=== PATIENT | female | born 1950 | race Caucasian/White ===

== ENCOUNTER 2016-05-14 06:42 | Day surgery (SDC) | payer MEDICARE, OTHER ==
[2016-05-14] VITALS (8 sets, daily range): BP systolic 95–149; BP diastolic 72–81; PULSE 60–95; RESP 16–19; TEMP 97.7–98; O2SAT 92–98
[~2016-05-14] VITALS: Ht 157.5 cm; Wt 115.9 kg
[~2016-05-14 06:42] MED LIST: ALBU6.7H INH; ALBUAER3 INH; BUPR150T5 PO; FEXO180T PO; FLUT1SPR9 EACH NARE; HYDR-3133 PO; HYDR-3580 PO; ISOS30TA3 PO; LAMO100T68 PO; METO-309 PO; MORPHINE IMPLANPUMP; OMEP20TA PO; PLAV75TA29 PO; POTA10CA PO; TRIA37.53 PO; XANA0.5T2 PO
[2016-05-14] MEDS ORDERED: PROC10TA PO (07:12)
[2016-05-14] MEDS ORDERED: MAXZTAB PO (07:12)
[2016-05-14] MEDS ORDERED: ZOFR4TAB3 SL (07:12)
[2016-05-14] MEDS ORDERED: LIDOCAINE 1%/EPINEPHrine 1:100,000 SOLN 20 ML VIAL ONE (08:20)
[2016-05-14] MEDS ORDERED: fentaNYL CITRATE 250 MCG/5 ML AMP ONE (08:54)
[2016-05-14] MEDS ORDERED: MIDAZOLAM HCL 5 MG/5 ML VIAL ONE (08:54)
[2016-05-14] MEDS ORDERED: THROMBIN (TOPICAL) 5,000 UNIT VIAL ONE (10:07)
[2016-05-14 11:15] LABS: AUTOMATED NEUTROPHIL # 3.8 TH/MM3 (1.8-7.7); BASOPHIL % 0.3 % (0.0-2.0); EOSINOPHIL # 0.2 TH/MM3 (0-0.4); EOSINOPHIL % 2.6 % (0.0-4.0); HEMATOCRIT 41.2 % (35.0-46.0); HEMO FLAGS DIFF FINAL; LYMPH % 31.4 % (9.0-44.0); MEAN CELL VOLUME 84.9 FL (80.0-100.0); MONO % 6.8 % (0.0-8.0); NEUT % 58.9 % (16.0-70.0); PLATELET COUNT 267 TH/MM3 (150-450); RED BLOOD COUNT 4.85 MIL/MM3 (4.00-5.30); RED CELL DISTRIBUTION WIDTH 14.5 % (11.6-17.2); WHITE BLOOD COUNT 6.4 TH/MM3 (4.0-11.0)
[2016-05-14] MEDS ORDERED: ACETAMINOPHEN/HYDROcodone 325 MG/5 MG TAB PO ONE (11:30)
[2016-05-14] MEDS ORDERED: ACETAMINOPHEN/HYDROcodone 325 MG/5 MG TAB PO PRN (12:30)
--- NOTE | 2016-05-14 13:15 | RADRPT ---
EXAM DATE/TIME: 05/14/2016 09:41 [place] COMPARISON: CT NEEDLE BIOPSY RENAL, RIGHT, May 27, 2013, 15:06. INDICATIONS : Recurrent right renal mass post cryoablation SEDATION TIME: 45 minutes BIOPSY SITE: Right kidney MEDICATION(S): 1.) 3 mg midazolam (Versed) IV 2.) 150 mcg fentanyl (Sublimaze) IV DEVICE(S): 1.) 16 gauge Valladares blunt needle 2.) 18 Fr BioPince MEDICAL HISTORY : Cardiovascular disease. Renal cell carcinoma. SURGICAL HISTORY : Mastectomy, bilateral. Hysterectomy. ENCOUNTER: Initial ACUITY: 1 day PAIN SCORE: 0/10 LOCATION: Right flank A total of three core specimen(s) were obtained and sent to the laboratory for pathologic evaluation. PROCEDURE: 1. CT guided renal biopsy. 2. Conscious sedation with continuous EKG and oximetry monitoring. 3. EKG and oximetry remained stable throughout the procedure. Prior to the procedure informed consent was obtained. Any appropriate prior imaging studies were rev iewed. Using automated exposure control and adjustment of the mA and/or kV according to patient size, radiat ion dose was kept as low as reasonably achievable to obtain optimal diagnostic quality images. The site was prepped in a sterile fashion. Full sterile technique was used, including cap, mask, yousuf rile gloves and gown and a large sterile sheet. Hand hygiene and 2% chlorhexidine and/or betadine/al cohol prep was utilized per protocol for cutaneous antisepsis. The skin and subcutaneous tissues wer e infiltrated with local anesthetic solution. With CT guidance the previously identified target was localized. Biopsy was performed using the presc ribed needle as above. Adequate hemostasis was obtained with compression at the puncture site. Follow-up CT scan reveals a small amount of hematoma. A combination of thrombin and fibrin was placed in the tract. The patient tolerated the procedure well and there were no complications. The patient was returned to the Radiology Outpatient Unit in stable condition. CONCLUSION: Uncomplicated CT guided biopsy. Mahesh Watson MD on May 14, 2016 at 13:13 Board Certified Radiologist. This report was verified electronically.
[2016-05-14 13:22] LABS: AUTOMATED NEUTROPHIL # 3.4 TH/MM3 (1.8-7.7); BASOPHIL # 0.1 TH/MM3 (0-0.2); BASOPHIL % 0.8 % (0.0-2.0); EOSINOPHIL # 0.2 TH/MM3 (0-0.4); EOSINOPHIL % 2.8 % (0.0-4.0); HEMATOCRIT 41.5 % (35.0-46.0); HEMO FLAGS DIFF FINAL; LYMPH % 35.8 % (9.0-44.0); LYMPHOCYTE # 2.2 TH/MM3 (1.0-4.8); MEAN CELL VOLUME 86.1 FL (80.0-100.0); MEAN CORPUSCULAR HEMOGLOBIN 27.7 PG (27.0-34.0); MEAN CORPUSCULAR HGB CONC 32.2 % (32.0-36.0); MONO % 5.6 % (0.0-8.0); PLATELET COUNT 206 TH/MM3 (150-450); RED BLOOD COUNT 4.81 MIL/MM3 (4.00-5.30); RED CELL DISTRIBUTION WIDTH 14.4 % (11.6-17.2); WHITE BLOOD COUNT 6.1 TH/MM3 (4.0-11.0)
[2016-07-11] MEDS ORDERED: ZANTTAB9 PO (11:24)
[2016-08-09] MEDS ORDERED: HYDR-3534 PO (10:35)
== END 2016-05-14 15:38 | disposition home or self-care (01) ==
LOC: HRAD 06:42 → HRIP 06:43 → HRAD 15:38
PROVIDERS: ATTEND Urology
DX: C64.9 Malignant neoplasm of unspecified kidney, except renal pelvis (principal); I25.10 Atherosclerotic heart disease of native coronary artery without angina pectoris; Z90.10 Acquired absence of unspecified breast and nipple; Z90.710 Acquired absence of both cervix and uterus
CPT/HCPCS: 50200; 77012; 85025; 88305; 88341; 88342; J2250; J3010

== ENCOUNTER → 2016-07-10 | Outpatient (CLI) | payer MEDICARE, OTHER ==
[~2016-07-10] MED LIST changes: -ALBUAER3 INH; +AMLO5TAB2 PO; +GABA100C4 PO; -HYDR-3133 PO; +HYDR-3534 PO; -HYDR-3580 PO; +MAXZTAB PO; +PROC10TA PO; -TRIA37.53 PO; +VITA1000 PO; +ZANT150T2 PO; +ZANTTAB9 PO; +ZOFR4TAB3 SL
[2016-07-10 10:48] LABS: AUTOMATED NEUTROPHIL # 4.9 TH/MM3 (1.8-7.7); BASOPHIL # 0.1 TH/MM3 (0-0.2); BASOPHIL % 1.2 % (0.0-2.0); EOSINOPHIL # 0.1 TH/MM3 (0-0.4); EOSINOPHIL % 0.8 % (0.0-4.0); HEMATOCRIT 41.6 % (35.0-46.0); HEMO FLAGS DIFF FINAL; LYMPH % 24.9 % (9.0-44.0); LYMPHOCYTE # 1.8 TH/MM3 (1.0-4.8); MEAN CELL VOLUME 85.7 FL (80.0-100.0); MEAN CORPUSCULAR HEMOGLOBIN 27.7 PG (27.0-34.0); MEAN CORPUSCULAR HGB CONC 32.4 % (32.0-36.0); NEUT % 67.1 % (16.0-70.0); PLATELET COUNT 275 TH/MM3 (150-450); RED BLOOD COUNT 4.86 MIL/MM3 (4.00-5.30); RED CELL DISTRIBUTION WIDTH 14.6 % (11.6-17.2); WHITE BLOOD COUNT 7.4 TH/MM3 (4.0-11.0)
[2016-07-10 10:57] LABS: APTT (PATIENT) 29.5 SEC (24.3-30.1); PROTHROMBIN TIME - PATIENT 11.3 SEC (9.8-11.6)
[2016-07-10 11:20] LABS: ALKALINE PHOSPHATASE 108 U/L (45-117); ALT (GPT) 25 U/L (10-53); ANION GAP 9 MEQ/L (5-15); AST (GOT) 68 U/L (15-37); BICARBONATE 29.5 MEQ/L (21.0-32.0); BLOOD UREA NITROGEN 13 MG/DL (7-18); CHLORIDE 99 MEQ/L (98-107); GLOMERULAR FILTRATION RATE 56 ML/MIN (>89); GLUCOSE,FASTING 123 MG/DL (74-99); POTASSIUM 4.2 MEQ/L (3.5-5.1); SODIUM (NA) 137 MEQ/L (136-145); TOTAL BILIRUBIN ADULT 0.4 MG/DL (0.2-1.0)
== END ==
LOC: CPRE 10:23
PROVIDERS: ATTEND Urology
DX: N28.89 Other specified disorders of kidney and ureter (principal)
CPT/HCPCS: 36415; 80053; 85025; 85610; 85730

== ENCOUNTER 2016-07-17 05:54 | Inpatient (IN) | payer MEDICARE, OTHER ==
[~2016-07-17] VITALS: Ht 157.5 cm; Wt 121.3 kg
[~2016-07-17 05:54] MED LIST changes: -AMLO5TAB2 PO; -GABA100C4 PO; -HYDR-3534 PO; -OMEP20TA PO; -VITA1000 PO; -ZANT150T2 PO
[2016-07-17] MEDS ORDERED: POVIDONE IODINE 5% (ANTISEPSIS KIT) 4 APPLICATIONS EACH NARE PRN (06:15)
[2016-07-17] MEDS ORDERED: METOPROLOL TARTRATE 25 MG TAB PO PRN (06:15)
[2016-07-17] MEDS ORDERED: INSULIN HUMAN REGULAR 1,000 UNITS/10 ML VIAL SQ PRN (06:15)
[2016-07-17] MEDS ORDERED: LACTATED RINGER'S 1000 ML IV PRN (06:15)
[2016-07-17] MEDS ORDERED: SODIUM CHLORID 0.9% 500 ML IV PRN (06:15)
[2016-07-17] MEDS ORDERED: CHLORHEXIDINE GLUCONATE 2 % 1 PACK (2 CLOTHS) TOPICAL PRN (06:15)
[2016-07-17] MEDS ORDERED: LEVOFLOXACIN 500 MG PREMIX INJ 100 ML IV PRN (06:30)
[2016-07-17] MEDS ORDERED: ZANT150T2 PO (06:38)
[2016-07-17] MEDS ORDERED: VITA1000 PO (06:40)
[2016-07-17 06:41] VITALS: BP 139/74; PULSE 60; RESP 18; TEMP 98.2; O2SAT 94
[2016-07-17] MEDS ORDERED: GABA100C4 PO (06:41)
[2016-07-17] MEDS ORDERED: AMLO5TAB2 PO (06:41)
[2016-07-17] MEDS ORDERED: fentaNYL CITRATE 250 MCG/5 ML AMP ONE ×2 (06:50→16:10)
[2016-07-17] MEDS ORDERED: FAMOTIDINE 20 MG/2 ML VIAL ONE (06:50)
[2016-07-17] MEDS ORDERED: MIDAZOLAM HCL 2 MG/2 ML VIAL ONE (06:50)
[2016-07-17] MEDS ORDERED: ONDANSETRON HCL 4 MG/2 ML VIAL ONE (08:01)
[2016-07-17 11:46] LABS: BLOOD GAS HCO3 23 mmol/L (22-26); BLOOD GAS METHEMOGLOBIN 1.5 % (0-2); BLOOD GAS O2 HGB SATURATION 95 % (90-100); BLOOD GAS OXYGEN CONTENT 15.7 Vol % (12.0-20.0); BLOOD GAS PCO2 37 mmHg (38-42); BLOOD GAS PO2 122 mmHg (61-120); BLOOD GAS TOTAL HGB 11.6 G/DL (12.0-16.0); CRITICAL VALUE NO; OXYGEN DEVICE VENTILATOR; TEMP CORR TO 98.6
[2016-07-17 11:47] LABS: DRAW SITE ART LINE; FIO2 100 %; STAT YES
[2016-07-17] MEDS ORDERED: NORMOSOL R IV ONE (12:00)
[2016-07-17] MEDS ORDERED: LACTATED RINGER'S 1000 ML INJ 3,000 ML IV ONE (12:00)
[2016-07-17] MEDS ORDERED: VECURONIUM BROMIDE 20 MG VIAL IV ONE (12:00)
[2016-07-17] MEDS ORDERED: PHENYLEPH/NS 1000 MCG/10 ML SYR IV ONE (12:00)
[2016-07-17] MEDS ORDERED: ePHEDrine/NS 25 MG/5 ML SYR IV ONE (12:00)
[2016-07-17] MEDS ORDERED: PROPOFOL 200 MG/20 ML AMP IV ONE (12:00)
[2016-07-17 13:30] LABS: BLOOD GAS BASE EXCESS -1.2 mmol/L (-2-2); BLOOD GAS CARBOXYHEMOGLOBIN 0.9 % (0-4); BLOOD GAS HCO3 23 mmol/L (22-26); BLOOD GAS METHEMOGLOBIN 1.2 % (0-2); BLOOD GAS O2 HGB SATURATION 96 % (90-100); BLOOD GAS OXYGEN CONTENT 15.7 Vol % (12.0-20.0); BLOOD GAS PCO2 39 mmHg (38-42); BLOOD GAS PO2 195 mmHg (61-120); BLOOD GAS TOTAL HGB 11.3 G/DL (12.0-16.0); CRITICAL VALUE NO; DRAW SITE ART LINE; FIO2 100 %; OXYGEN DEVICE VENTILATOR; STAT YES; TEMP CORR TO 98.6
[2016-07-17] MEDS ORDERED: ACETAMINOPHEN 1000 MG/100 ML VIAL IV ONE (16:10)
[2016-07-17] MEDS ORDERED: SUGAMMADEX SODIUM 200 MG/2 ML VIAL IV PUSH ONE ×2 (16:10)
[2016-07-17 16:37] LABS: BLOOD GAS BASE EXCESS -3.2 mmol/L (-2-2); BLOOD GAS CARBOXYHEMOGLOBIN 1.5 % (0-4); BLOOD GAS HCO3 22 mmol/L (22-26); BLOOD GAS METHEMOGLOBIN 2.1 % (0-2); BLOOD GAS O2 HGB SATURATION 92 % (90-100); BLOOD GAS OXYGEN CONTENT 15.1 Vol % (12.0-20.0); BLOOD GAS PCO2 48 mmHg (38-42); BLOOD GAS PO2 83 mmHg (61-120); BLOOD GAS TOTAL HGB 11.6 G/DL (12.0-16.0); TEMP CORR TO 98.6
[2016-07-17 16:38] LABS: OXYGEN DEVICE VENTILATOR
[2016-07-17 16:39] LABS: CRITICAL VALUE YES; DRAW SITE ART LINE; FIO2 100 %; STAT YES
--- NOTE | 2016-07-17 16:57 | PD.OP ---
Operative Report Date of Surgery: July 17, 2016 Preoperative Diagnosis: (1) Renal cell carcinoma of right kidney Postoperative Diagnosis: (1) Renal cell carcinoma of right kidney Procedure: Robot-assisted laparoscopic right radical nephrectomy with lysis of adhesions Anesthesia: General Surgeon: Shorty Mccormack Locator(s): Kirit Rosa Operation and Findings: Indication for procedure: Case of a pleasant 66-year-old female with history right renal cell carcinoma treated with cryoablation in May 2013. Patient was recently diagnosed with recurrent disease at the same site via needle biopsy and presents now for a robot-assisted laparoscopic right partial versus radical nephrectomy. Operative procedure in detail: Patient was brought to the operating room suite and placed supine on the OR table. She was then placed and general endotracheal anesthesia. She was then repositioned in the left lateral recumbent position and secured in place with a beanbag after the table was flexed to displace the pelvis from the thorax. All pressure points were then adequately padded. After appropriate timeout was undertaken, I proceeded with creating a pneumoperitoneum utilizing the veruss needle. The camera port was then placed with the visual obturator and the peritoneal cavity was easily entered. Careful inspection with the laparoscopic camera demonstrated multiple abdominal wall adhesions as well as the transverse colon being adhered to the anterior abdominal wall. The endovascular scissors were utilized and the adhesions were taken down. It took approximately 2 hours to free up the adhesions to allow proper port placement. Next the 3 robotic arm ports as well as the 12 mm surgical first assistant port were placed under direct vision. The robot was next Dr. varinder fragoso. I repositioned myself over at the [facility] [place] console and Dr. Kirit Rosa remained at the bedside to cutter first. The right colon was mobilized medially to expose the right retroperitoneum. The kidney was identified and mobilized. Once the kidney was cleared of the overlying renal fatty tissue became apparent that the kidney was quite small and that the tumor mass encompassed most of the kidney, a decision was thus made to proceed with a full right radical nephrectomy. The hilar vessels were identified and skeletonized and subsequently divided ligated utilizing the endovascular stapling device. Next the kidney was further mobilized of the remaining attachments and placed in a Endo Catch specimen bag. The pneumoperitoneum was dropped down to 5 mmHg and no significant bleeding was noted here at a 10 mm PAMELA drain was placed through one of the robotic arm ports under direct vision and the ports were then removed and the robot undocked. I re-scrubbed and returned back to the bedside to complete the procedure. The camera port was extended for a distance of approximate 4 cm and the specimen delivered. This extended incision site was then closed utilizing #1 PDS to reapproximate the fascia and the skin edges were reapproximated with the skin stapling device. The robotic arm ports were closed by reapproximating the skin edges with the skin stapling device. The first support was then closed in 2 layers with the fascial layer reapproximated with 2-0 Vicryl suture and the overlying skin with the skin stapling device. Sterile dressings were placed over all wound sites. The PAMELA drain was secured with 2. 0 nylon and connected to bulb suction. The patient tolerated the procedures without patient's posterior transferred to the PACU in satisfactory condition. Total estimated blood loss was approximately 1 L and the patient received 2 units packed cells in the operating room. Shorty Mccormack MD July 17, 2016 16:57
[2016-07-17] MEDS ORDERED: HYDROmorphone HCL PCA 6 MG/30 ML IV SCH (17:00)
[2016-07-17] MEDS ORDERED: NALOXONE HCL 0.4 MG/ML AMP IV PRN ×2 (17:00)
[2016-07-17] MEDS ORDERED: SODIUM CHLORIDE 0.9% FLUSH 10 ML FLUSH IV FLUSH PRN (17:00)
[2016-07-17] MEDS ORDERED: Post-op Orders (for Pharmacy) MISC XX ONE (17:00)
[2016-07-17] MEDS: PCA - TOTAL MG DILAUDID DELIVERED PER SHIFT OTHER SCH ×2 (17:00→22:00)
[2016-07-17] MEDS ORDERED: FUROSEMIDE 20 MG/2 ML VIAL ONE (17:13)
[2016-07-17] MEDS ORDERED: *morphine SULFATE 8 MG/ML PERIprocedure ONLY ONE ×2 (17:21→17:35)
[2016-07-17] MEDS ORDERED: *HYDROmorphone PF 1 MG VIAL PERIprocedural Use ONLY ONE (17:40)
[2016-07-17] MEDS ORDERED: ALBUTEROL SULFATE 90 MCG/ACT HFA 18 GM INHALER INH PRN (17:45)
[2016-07-17] MEDS ORDERED: PILL SPLITTER OTHER PRN (17:45)
[2016-07-17] MEDS: LACTATED RINGER'S 1000 ML INJ 1,000 ML IV SCH (17:55)
[2016-07-17] MEDS ORDERED: *RESP: ALBUTEROL 2.5 MG/3 ML NEB (PRN) PERIprocedural Use ONLY NEB ONE (17:56)
[2016-07-17] MEDS ORDERED: DO NOT ADM ANY ANTICOAGULANT DRUGS PRN (18:15)
[2016-07-17 20:00] VITALS: BP 117/54; PULSE 76; RESP 22; TEMP 97.1; O2SAT 94
[2016-07-17] MEDS: GABAPENTIN 300 MG CAP PO SCH (21:00)
[2016-07-17] MEDS ORDERED: LAMOTRIGINE 100 MG PO SCH (21:00)
[2016-07-17] MEDS: SODIUM CHLORIDE 0.9% FLUSH 10 ML FLUSH IV FLUSH SCH (21:00)
[2016-07-17] MEDS: METOPROLOL TARTRATE 50 MG TAB PO SCH (21:00)
[2016-07-17] MEDS: lamoTRIgine 100 MG TAB PO SCH (21:00)
[2016-07-17] MEDS: buPROPion HCL 150 MG SUSTAINED RELEASE TAB PO SCH (21:00)
[2016-07-17] MEDS: ALPRAZolam 0.25 MG TAB PO SCH (23:59)
[2016-07-18] VITALS (7 sets, daily range): BP systolic 116–145; BP diastolic 58–84; PULSE 76–89; RESP 20; TEMP 97.5–98.9; O2SAT 94–97
[2016-07-18] MEDS: LACTATED RINGER'S 1000 ML INJ 1,000 ML IV SCH (05:38)
[2016-07-18] MEDS: PCA - TOTAL MG DILAUDID DELIVERED PER SHIFT OTHER SCH (05:44)
[2016-07-18 05:48] LABS: HEMATOCRIT 38.3 % (35.0-46.0); REVIEW FLAG FINAL
[2016-07-18 06:26] LABS: BICARBONATE 33.4 MEQ/L (21.0-32.0)
[2016-07-18 06:32] LABS: POTASSIUM 4.6 MEQ/L (3.5-5.1)
[2016-07-18] MEDS: ONDANSETRON HCL 4 MG/2 ML VIAL IV PRN ×2 (07:55)
[2016-07-18] MEDS: amLODIPine BESYLATE 5 MG TAB PO SCH (08:00)
[2016-07-18] MEDS: METOPROLOL TARTRATE 50 MG TAB PO SCH ×2 (08:00→22:26)
[2016-07-18] MEDS: lamoTRIgine 100 MG TAB PO SCH ×2 (08:00→22:27)
[2016-07-18] MEDS ORDERED: LEVOFLOXACIN 500 MG PREMIX INJ 100 ML IV SCH (08:00)
[2016-07-18] MEDS: ISOSORBIDE MONONITRATE 30 MG TAB PO SCH (08:01)
[2016-07-18] MEDS: LORATADINE 10 MG TAB PO SCH (08:01)
[2016-07-18] MEDS: buPROPion HCL 150 MG SUSTAINED RELEASE TAB PO SCH ×2 (08:01→22:27)
[2016-07-18] MEDS: POTASSIUM CHLORIDE 10 MEQ CAP PO SCH (08:01)
[2016-07-18] MEDS: FAMOTIDINE 20 MG TAB PO SCH (08:01)
[2016-07-18] MEDS: ALPRAZolam 0.25 MG TAB PO SCH ×2 (08:01→22:26)
[2016-07-18] MEDS: TRIAMTERENE/HCTZ 37.5 MG/25 MG TAB PO SCH (08:01)
[2016-07-18] MEDS: SODIUM CHLORIDE 0.9% FLUSH 10 ML FLUSH IV FLUSH SCH ×2 (08:02→22:26)
[2016-07-18] MEDS: FLUTICASONE PROPIONATE 50 MCG/ACT 16 GM NASAL SPRAY EACH NARE SCH (08:03)
[2016-07-18] MEDS ORDERED: NON-FORMULARY DRUG (Fexofenadine 180 MG) PO SCH (09:00)
[2016-07-18] MEDS ORDERED: NON-FORMULARY DRUG (Ranitidine (Zantac) 75 MG) PO SCH (09:00)
[2016-07-18] MEDS ORDERED: ALPRAZOLAM 0.5 MG PO SCH (09:00)
--- NOTE | 2016-07-18 11:44 | HHI.PR ---
Subjective Patient symptoms today Postoperative day #1 Tolerating clear liquid diet Pain adequately controlled Out of bed to chair this morning Objective Vital Signs Vital Signs Date Time Temp Pulse Resp B/P Pulse Ox O2 Delivery O2 Flow Rate FiO2 07/18/16 08:00 98.5 89 20 136/84 97 07/18/16 05:44 18 07/18/16 04:00 97.6 84 20 133/69 94 07/18/16 00:00 97.5 78 20 116/58 95 07/17/16 22:00 18 07/17/16 20:00 97.1 76 22 117/54 94 07/17/16 18:30 98.7 77 14 127/56 95 Nasal Cannula 3 07/17/16 18:15 78 15 121/71 95 Nasal Cannula 3 07/17/16 18:00 76 15 116/77 98 Nasal Cannula 4 07/17/16 18:00 14 07/17/16 17:45 75 15 113/62 95 Nasal Cannula 4 07/17/16 17:30 73 15 136/64 95 Nasal Cannula 4 07/17/16 17:15 76 14 138/66 92 Simple Mask 6 07/17/16 17:00 98.2 72 14 134/70 93 Simple Mask 6 Intake & Output 07/18/16 07/18/16 07:00 19:00 Intake Total 830 ml 120 ml Output Total 470 ml Balance 360 ml 120 ml Intake Oral 120 ml 120 ml IV Total 710 ml Output Urine Total 400 ml Drainage Total 70 ml # Bowel Movements 0 Result Diagram: 07/18/16 0514 07/18/16 0514 Objective Remarks Abdomen soft, nondistended, nontender Wound sites clean and dry Extremities well-perfused, nontender Medications and IVs Current Medications Medications (Trade) Dose Ordered Sig/Clifton Route Start Time Stop Time Status Last Admin Sodium Chloride 500 ml @ 30 mls/hr [id number] PRN IV 07/17/16 06:15 07/20/16 06:14 (Lr 1000 ml Inj) 1,000 ml @ 83 mls/hr Q12H3M IV 07/17/16 17:00 07/18/16 05:38 (NS Flush) 2 ml UNSCH PRN IV FLUSH 07/17/16 17:00 (NS Flush) 2 ml BID IV FLUSH 07/17/16 21:00 07/18/16 08:02 (Zofran Inj) 4 mg Q6H PRN IV 07/17/16 17:00 07/18/16 07:55 (Narcan Inj) 0.4 mg UNSCH PRN IV 07/17/16 17:00 (Narcan Inj) 0.4 mg UNSCH PRN IV 07/17/16 17:00 (Dilaudid RESPIRATORY SERVICES MANAGER Inj) 6 mg UNSCH IV 07/17/16 17:00 07/17/16 18:00 RESPIRATORY SERVICES MANAGER Dosage Infused (Pha) 1 Q8HR OTHER 07/17/16 17:00 07/18/16 05:44 (Ventolin Hfa Inh) 2 puff Q6H PRN INH 07/17/16 17:45 (Norvasc) 5 mg DAILY PO 07/18/16 09:00 07/18/16 08:00 (Wellbutrin Sr) 150 mg BID PO 07/17/16 21:00 07/18/16 08:01 (Flonase Cholo Spr) 2 spray DAILY EACH NARE 07/18/16 09:00 (Neurontin) 300 mg HS PO 07/17/16 21:00 07/17/16 21:00 (Imdur) 30 mg DAILY PO 07/18/16 09:00 07/18/16 08:01 (Lopressor) 50 mg BID PO 07/17/16 21:00 07/18/16 08:00 (KCl) 10 meq DAILY PO 07/18/16 09:00 07/18/16 08:01 (Maxzide 37.5-25 Mg) 1 tab DAILY PO 07/18/16 09:00 07/18/16 08:01 (Pepcid) 10 mg DAILY PO 07/18/16 09:00 07/18/16 08:01 (Pill Splitter) 1 ea UNSCH PRN OTHER 07/17/16 17:45 (Xanax) 0.25 mg BID PO 07/17/16 21:00 07/18/16 08:01 (Claritin) 10 mg DAILY PO 07/18/16 09:00 07/18/16 08:01 (LaMICtal) 100 mg BID PO 07/17/16 21:00 07/18/16 08:00 Miscellaneous Information ALL NURSING DEPARTME... UNSCH PRN .XX 07/17/16 18:15 07/18/16 18:14 Assessment and Plan Assessment and Plan Urologic impression: Status post robot-assisted laparoscopic right radical nephrectomy with expected postoperative course Plan: #1 advance diet #2 encourage ambulation #3 DC Vivar catheter #4 check pathology when available #5 DC PAMELA drain in a.m. #6 Repeat labs in a.m. Shorty Mccormack MD July 18, 2016 11:44
[2016-07-18] MEDS: 1/2 NS + KCL 20 MEQ INJ 1,000 ML IV SCH (13:06)
[2016-07-18] MEDS: GABAPENTIN 300 MG CAP PO SCH (22:26)
[2016-07-19] VITALS: BP 153/72; PULSE 80; RESP 20; TEMP 98.6; O2SAT 94
[2016-07-19] MEDS: ACETAMINOPHEN 325 MG TAB PO PRN ×3 (01:32→23:15)
[2016-07-19] MEDS: 1/2 NS + KCL 20 MEQ INJ 1,000 ML IV SCH ×2 (01:32→20:34)
[2016-07-19] MEDS: ONDANSETRON HCL 4 MG/2 ML VIAL IV PRN ×2 (03:49→08:15)
[2016-07-19 05:56] LABS: AUTOMATED NEUTROPHIL # 7.6 TH/MM3 (1.8-7.7); BASOPHIL % 0.2 % (0.0-2.0); EOSINOPHIL % 0.4 % (0.0-4.0); HEMO FLAGS DIFF FINAL; LYMPH % 12.4 % (9.0-44.0); LYMPHOCYTE # 1.2 TH/MM3 (1.0-4.8); MEAN CELL VOLUME 85.5 FL (80.0-100.0); MEAN CORPUSCULAR HEMOGLOBIN 28.5 PG (27.0-34.0); MEAN CORPUSCULAR HGB CONC 33.4 % (32.0-36.0); PLATELET COUNT 205 TH/MM3 (150-450); RED BLOOD COUNT 4.09 MIL/MM3 (4.00-5.30); RED CELL DISTRIBUTION WIDTH 15.3 % (11.6-17.2); WHITE BLOOD COUNT 9.7 TH/MM3 (4.0-11.0)
[2016-07-19 06:14] LABS: BICARBONATE 31.5 MEQ/L (21.0-32.0); POTASSIUM 3.5 MEQ/L (3.5-5.1)
[2016-07-19 08:00] VITALS: BP 158/79; PULSE 78; RESP 18; TEMP 97.7; O2SAT 92
[2016-07-19 08:18] VITALS: O2SAT 95
[2016-07-19] MEDS: buPROPion HCL 150 MG SUSTAINED RELEASE TAB PO SCH ×2 (08:18→20:33)
[2016-07-19] MEDS: FAMOTIDINE 20 MG TAB PO SCH (08:18)
[2016-07-19] MEDS: TRIAMTERENE/HCTZ 37.5 MG/25 MG TAB PO SCH (08:19)
[2016-07-19] MEDS: ISOSORBIDE MONONITRATE 30 MG TAB PO SCH (08:19)
[2016-07-19] MEDS: SODIUM CHLORIDE 0.9% FLUSH 10 ML FLUSH IV FLUSH SCH ×2 (08:19→20:36)
[2016-07-19] MEDS: ALPRAZolam 0.25 MG TAB PO SCH ×3 (08:19→20:45)
[2016-07-19] MEDS: POTASSIUM CHLORIDE 10 MEQ CAP PO SCH (08:19)
[2016-07-19] MEDS: LORATADINE 10 MG TAB PO SCH (08:19)
[2016-07-19] MEDS: amLODIPine BESYLATE 5 MG TAB PO SCH (08:19)
[2016-07-19] MEDS: lamoTRIgine 100 MG TAB PO SCH ×2 (08:19→20:33)
[2016-07-19] MEDS: FLUTICASONE PROPIONATE 50 MCG/ACT 16 GM NASAL SPRAY EACH NARE SCH (08:20)
[2016-07-19] MEDS: METOPROLOL TARTRATE 50 MG TAB PO SCH ×2 (08:20→20:33)
[2016-07-19 12:00] VITALS: BP 135/6; PULSE 65; RESP 18; TEMP 97.9; O2SAT 90
--- NOTE | 2016-07-19 12:19 | HHI.PR ---
Subjective Patient symptoms today Postoperative day #2 Feeling improved today but not ready to go home Passing gas Has been out of bed to chair but not ambulating outside of the room Objective Vital Signs Vital Signs Date Time Temp Pulse Resp B/P Pulse Ox O2 Delivery O2 Flow Rate FiO2 07/19/16 08:18 95 Nasal Cannula 3.00 07/19/16 08:00 97.7 78 18 158/79 92 07/19/16 00:00 98.6 80 20 153/72 94 07/18/16 21:06 95 Nasal Cannula 3.00 07/18/16 20:00 98.9 79 20 145/66 94 07/18/16 16:00 98.2 76 20 126/70 95 Intake & Output 07/19/16 07/19/16 07:00 19:00 Intake Total 2680 ml Output Total 1270 ml Balance 1410 ml Intake Oral 600 ml IV Total 2080 ml Output Urine Total 1150 ml Drainage Total 120 ml # Bowel Movements 0 Result Diagram: 07/19/16 0505 07/19/16 0505 Objective Remarks Abdomen soft, nondistended, nontender Wound sites clean and dry Extremities well-perfused, nontender Medications and IVs Current Medications Medications (Trade) Dose Ordered Sig/Clifton Route Start Time Stop Time Status Last Admin (NS 500 ml Inj) 500 ml @ 30 mls/hr [id number] PRN IV 07/17/16 06:15 07/20/16 06:14 (NS Flush) 2 ml UNSCH PRN IV FLUSH 07/17/16 17:00 (NS Flush) 2 ml BID IV FLUSH 07/17/16 21:00 07/19/16 08:19 (Zofran Inj) 4 mg Q6H PRN IV 07/17/16 17:00 07/19/16 08:15 (Narcan Inj) 0.4 mg UNSCH PRN IV 07/17/16 17:00 (Narcan Inj) 0.4 mg UNSCH PRN IV 07/17/16 17:00 (Dilaudid ENSEMBLE MEMBER Inj) 6 mg UNSCH IV 07/17/16 17:00 07/17/16 18:00 (Ventolin Hfa Inh) 2 puff Q6H PRN INH 07/17/16 17:45 (Norvasc) 5 mg DAILY PO 07/18/16 09:00 07/19/16 08:19 (Wellbutrin Sr) 150 mg BID PO 07/17/16 21:00 07/19/16 08:18 (Flonase Cholo Spr) 2 spray DAILY EACH NARE 07/18/16 09:00 (Neurontin) 300 mg HS PO 07/17/16 21:00 07/18/16 22:26 (Imdur) 30 mg DAILY PO 07/18/16 09:00 07/19/16 08:19 (Lopressor) 50 mg BID PO 07/17/16 21:00 07/19/16 08:20 (KCl) 10 meq DAILY PO 07/18/16 09:00 07/19/16 08:19 (Maxzide 37.5-25 Mg) 1 tab DAILY PO 07/18/16 09:00 07/19/16 08:19 (Pepcid) 10 mg DAILY PO 07/18/16 09:00 07/19/16 08:18 (Pill Splitter) 1 ea UNSCH PRN OTHER 07/17/16 17:45 (Xanax) 0.25 mg BID PO 07/17/16 21:00 07/19/16 08:19 (Claritin) 10 mg DAILY PO 07/18/16 09:00 07/19/16 08:19 Lamotrigine 100 mg 100 mg BID PO 07/17/16 21:00 07/19/16 08:19 (1/2 NS + KCl 20 Meq Inj) 1,000 ml @ 84 mls/hr [id number] IV 07/18/16 12:00 07/19/16 01:32 (Tylenol) 650 mg Q6H PRN PO 07/19/16 01:00 07/19/16 08:19 (Colace) 100 mg TID PO 07/19/16 13:00 UNV (Dulcolax Supp) 10 mg DAILY RECTAL 07/19/16 12:15 UNV Assessment and Plan Assessment and Plan Urologic impression: Status post robot-assisted laparoscopic right radical nephrectomy with expected postoperative course Plan: #1 regular diet #2 physical therapy consult for ambulation exercises #3 DC PAMELA drain #4 check pathology when available #5 anticipate discharge home tomorrow Shorty Mccormack MD Jul 19, 2016 12:18
[2016-07-19] MEDS: DOCUSATE SODIUM 100 MG CAP PO SCH ×2 (14:00→17:55)
[2016-07-19] MEDS: BISACODYL 10 MG SUPP RECTAL SCH (14:01)
[2016-07-19 16:00] VITALS: BP 142/84; PULSE 65; RESP 18; TEMP 97.8; O2SAT 92
[2016-07-19 20:00] VITALS: BP 136/65; PULSE 73; RESP 18; TEMP 97.5; O2SAT 92
[2016-07-19] MEDS: GABAPENTIN 300 MG CAP PO SCH (20:33)
[2016-07-20] VITALS: BP 141/74; PULSE 72; RESP 20; TEMP 97.9; O2SAT 92
[2016-07-20 08:00] VITALS: BP 135/85; PULSE 70; RESP 20; TEMP 97.6; O2SAT 92
[2016-07-20] MEDS: buPROPion HCL 150 MG SUSTAINED RELEASE TAB PO SCH (08:07)
[2016-07-20] MEDS: FAMOTIDINE 20 MG TAB PO SCH (08:07)
[2016-07-20] MEDS: METOPROLOL TARTRATE 50 MG TAB PO SCH (08:07)
[2016-07-20] MEDS: amLODIPine BESYLATE 5 MG TAB PO SCH (08:08)
[2016-07-20] MEDS: lamoTRIgine 100 MG TAB PO SCH (08:08)
[2016-07-20] MEDS: ISOSORBIDE MONONITRATE 30 MG TAB PO SCH (08:08)
[2016-07-20] MEDS: LORATADINE 10 MG TAB PO SCH (08:08)
[2016-07-20] MEDS: ALPRAZolam 0.25 MG TAB PO SCH (08:08)
[2016-07-20] MEDS: POTASSIUM CHLORIDE 10 MEQ CAP PO SCH (08:08)
[2016-07-20] MEDS: TRIAMTERENE/HCTZ 37.5 MG/25 MG TAB PO SCH (08:08)
[2016-07-20] MEDS: DOCUSATE SODIUM 100 MG CAP PO SCH (08:08)
[2016-07-20] MEDS: BISACODYL 10 MG SUPP RECTAL SCH (08:09)
[2016-07-20] MEDS: SODIUM CHLORIDE 0.9% FLUSH 10 ML FLUSH IV FLUSH SCH (08:10)
[2016-07-20] MEDS: FLUTICASONE PROPIONATE 50 MCG/ACT 16 GM NASAL SPRAY EACH NARE SCH (08:10)
--- NOTE | 2016-07-20 11:01 | HHI.DS ---
Discharge Summary Admission Date July 17, 2016 at 17:08 Discharge Date: Jul 20, 2016 Admitting Diagnosis (1) Renal cell carcinoma of right kidney Diagnosis: Principal Procedures Robot-assisted laparoscopic right radical nephrectomy Brief History 66-year-old female with history right renal cell carcinoma treated with cryoablation several years ago who was recently discovered to have recurrence and confirmed with needle biopsy. Admitted on July 17 undergo a robot-assisted laparoscopic right partial versus radical nephrectomy. Please refer to admission history and physical for additional history and pertinent physical findings. CBC/BMP: 07/19/16 0505 07/19/16 0505 Significant Findings Laboratory Tests Test 07/17/16 07/17/16 07/17/16 07/18/16 11:35 13:12 16:26 05:14 Arterial Blood Partial 37 mmHg (38-42) 48 mmHg (38-42) Pressure CO2 Arterial Blood Partial 122 mmHg 195 mmHg Pressure O2 (61-120) (61-120) Blood Gas Hemoglobin 11.6 G/DL 11.3 G/DL 11.6 G/DL (12.0-16.0) (12.0-16.0) (12.0-16.0) Blood Gas Base Excess -3.2 mmol/L (-2-2) Arterial Blood pH 7.29 (7.380-7.420) Arterial Blood Methemoglobin 2.1 % (0-2) Carbon Dioxide Level 33.4 MEQ/L (21.0-32.0) Creatinine 2.34 MG/DL (0.50-1.00) Estimat Glomerular Filtration 21 ML/MIN (>89) Rate Random Glucose 131 MG/DL (74-106) Calcium Level 7.7 MG/DL (8.5-10.1) Test 07/19/16 05:05 Neutrophils (%) (Auto) 78.0 % (16.0-70.0) Monocytes (%) (Auto) 9.0 % (0.0-8.0) Sodium Level 134 MEQ/L (136-145) Chloride Level 96 MEQ/L (98-107) Creatinine 1.68 MG/DL (0.50-1.00) Estimat Glomerular Filtration 30 ML/MIN (>89) Rate Random Glucose 127 MG/DL (74-106) Calcium Level 7.5 MG/DL (8.5-10.1) PE at Discharge Abdomen soft, nondistended, nontender Wound sites clean and dry. Small amount serous drainage at PAMELA site Extremities well-perfused, nontender Hospital Course Patient admitted on July 17 of this year and underwent a robot-assisted laparoscopic right radical nephrectomy. The procedure went well without complications. Patient had an excellent postop course and by postoperative day #3 she was ambulating well, tolerating oral intake well and her pain well controlled. Patient also had a bowel movement on the morning of postop day #3. Final pathology demonstrated renal cell carcinoma with negative surgical margins. Since patient's vital signs were stable decision was made to discharge the patient home with instructions to follow up with me in the office on August 09 of this year. Pt Condition on Discharge: Good Discharge Disposition: Discharge Home Discharge Instructions DIET: Follow Instructions for: As Tolerated, No Restrictions Activities you can perform: See Additionl Instruction Additional Activity Instructio: No strenuous activity for at least 6 weeks from the date of surgery Additional Information Patient advised not to resume her Plavix until July 21, 2016. Shorty Mccormack MD Jul 20, 2016 11:01
[2016-07-20 12:12] VITALS: O2SAT 94
[2016-08-09] MEDS ORDERED: HYDR-3534 PO (10:35)
== END 2016-07-20 13:19 | disposition home or self-care (01) | DRG 657 ==
LOC: HSDC 05:54 → EDSTATUS 08:00 → HSDI 17:08 → N07B 19:58
PROVIDERS: ADMIT Urology; ATTEND Urology
PROC: 8E0W4CZ Robotic Assisted Procedure of Trunk Region, Percutaneous Endoscopic Approach (ICD-10-PCS; 2016-07-17)
PROC: 0TT04ZZ Resection of Right Kidney, Percutaneous Endoscopic Approach (ICD-10-PCS; principal; 2016-07-17 08:43)
PROC: 0DNW4ZZ Release Peritoneum, Percutaneous Endoscopic Approach (ICD-10-PCS; 2016-07-17 08:43)
DX: C64.1 Malignant neoplasm of right kidney, except renal pelvis (principal); Z68.42 Body mass index [BMI] 45.0-49.9, adult; I10 Essential (primary) hypertension; I25.10 Atherosclerotic heart disease of native coronary artery without angina pectoris; I25.2 Old myocardial infarction; K21.9 Gastro-esophageal reflux disease without esophagitis; K58.9 Irritable bowel syndrome, unspecified; M79.7 Fibromyalgia; E78.5 Hyperlipidemia, unspecified; E66.01 Morbid (severe) obesity due to excess calories; F31.9 Bipolar disorder, unspecified; Z88.0 Allergy status to penicillin; Z88.5 Allergy status to narcotic agent; Z95.5 Presence of coronary angioplasty implant and graft
CPT/HCPCS: 36415; 36430; 76937; 80048; 82805; 85014; 85018; 85025; 86077; 86850; 86870; 86900; 86901; 86902; 86920; 86922; 88307; 88309; 94150; 94664; J0131; J1170; J1940; J1956; J2250; J2270; J2370; J2405; J3010; J7120; J7613; P9016

== ENCOUNTER 2017-07-08 18:07 | Observation (INO) | payer MEDICARE, OTHER ==
[~2017-07-08] VITALS: Ht 157.5 cm; Wt 98.0 kg
[~2017-07-08 18:07] MED LIST changes: +AMLO5TAB2 PO; +VITA1000 PO; +ZANT150T2 PO; -ZANTTAB9 PO
[2017-07-08 18:17] VITALS: BP 101/75; PULSE 50; RESP 20; TEMP 98.1; O2SAT 96
[2017-07-08 18:34] VITALS: BP 122/68; PULSE 50; RESP 18; O2SAT 98
[2017-07-08 18:47] VITALS: BP_SYST 103; BP_SYST 106; BP_SYST 122; BP_SYST 126; BP_DIAS 37; BP_DIAS 67; BP_DIAS 68; BP_DIAS 73; RESP 18; RESP 22; RESP 24
[2017-07-08] MEDS ORDERED: TOPI50TA7 PO (18:55)
[2017-07-08] MEDS ORDERED: MORP-44 PO (18:55)
[2017-07-08] MEDS ORDERED: DULO1CAP PO (18:55)
[2017-07-08] MEDS ORDERED: UMEC1AER INH (18:55)
[2017-07-08 19:11] VITALS: BP 113/69; PULSE 50; RESP 18; O2SAT 98
[2017-07-08] MEDS ORDERED: SODIUM CHLORID 0.9% 500 ML INJ 500 ML IV ONE ×2 (19:30→22:15)
[2017-07-08] MEDS ORDERED: SODIUM CHLORIDE 0.9% FLUSH 10 ML FLUSH IVF PRN (19:30)
--- NOTE | 2017-07-08 19:34 | PD ---
HPI Chief Complaint: Dizziness Time Seen by Provider: 19:20 Travel History International Travel<30 days: No Contact w/Intl Traveler<30days: No Traveled to known affect area: No History of Present Illness HPI 67-year-old female presents to the emergency department by private transportation the care of her spouse for evaluation of generalized weakness and dizziness with near syncope 1 week. Patient was seen today by her psychiatrist and encouraged to go to urgent care to be evaluated. Patient was evaluated in urgent care and encouraged to come to the emergency room for low blood pressure. Patient states that she has multiple medical problems including CAD with previous CT stent placement hypertension dyslipidemia chronic pain syndrome with morphine pump previous renal carcinoma with nephrectomy and IBS. Patient denies any headache altered mentation visual disturbance and denies any new upper or lower extremity numbness tingling or weakness. Patient does not feel ataxic but does note she is quite dizzy and lightheaded upon standing which improves with sitting or lying supine. Patient also has recent intentional weight loss of approximately 50 pounds and has noted that her blood pressure has been lower without recent adjustment of her antihypertensive medication. Patient also recently within the past 2 weeks had refill of her morphine pump was not for but states they did not adjust the dosing and she has not been more somnolent since the refill of her morphine pump. Patient denies any chest pain or shortness of breath. Patient denies any history of arrhythmia and has had no palpitations. Patient has had some nausea without vomiting has chronic upper abdominal discomfort with history of irritable bowel syndrome and has noted diarrhea without melena hematochezia. Patient does not report any dietary indiscretion. Patient denies any urinary symptoms no dysuria frequency urgency flank pain or hematuria. Patient rest feels essentially asymptomatic except for some mild dizziness. Patient's had no new medications increasing or decreasing of dosages of chronic medications. PFSH Past Medical History Narrative Medical Arthritis asthma dyslipidemia chest pain CAD CT coronary stent depression fibromyalgia GERD IBS renal carcinoma nephrectomy hysterectomy cardiac catheterization morphine pump back surgery; no tobacco use; nursing notes reviewed Arthritis: Yes Asthma: Yes Autoimmune Disease: No Blood Disorders: No Anxiety: No Depression: Yes Heart Rhythm Problems: No Cancer: Yes (Rt Renal CA ) Cardiovascular Problems: Yes High Cholesterol: Yes Chemotherapy: No Chest Pain: Yes Congestive Heart Failure: No COPD: Yes Cerebrovascular Accident: No Diabetes: No Diminished Hearing: No Endocrine: No Fibromyalgia: Yes Gastrointestinal Disorders: Yes (GERD ) GERD: Yes Glaucoma: No Genitourinary: No Headaches: Yes Hepatitis: No Hiatal Hernia: Yes Hypertension: Yes Immune Disorder: No Implanted Vascular Access Dvce: Yes Kidney Stones: No Medical other: Yes (GERD, PEPTIC ULCER IN PAST, FIBROMYALGIA) Musculoskeletal: Yes (fibromyalgia ) Neurologic: Yes (depression) Psychiatric: Yes (DEPRESSION) Reproductive: No Respiratory: Yes (chronic bronchitis ) Myocardial Infarction: No Radiation Therapy: No Renal Failure: Yes Seizures: No Sickle Cell Disease: No Sleep Apnea: No Thyroid Disease: No Ulcer: Yes (peptic) Tetanus Vaccination: > 5 Years Influenza Vaccination: No Past Surgical History Abdominal Surgery: Yes (cholecystectomy ) AICD: No Body Medical Devices: morphine pump implanted in left side of abd Cardiac Surgery: No Section: Yes Cholecystectomy: Yes Ear Surgery: No Endocrine Surgery: No Eye Surgery: No Genitourinary Surgery: Yes (laser sx for kidney CA) Gynecologic Surgery: Yes ( ) Hysterectomy: Yes Joint Replacement: No Neurologic Surgery: Yes (LOW BACK SX) Oral Surgery: No Pacemaker: No Thoracic Surgery: Yes (RIGHT BREAST BX) Tonsillectomy: Yes Other Surgery: Yes Social History Alcohol Use: No Tobacco Use: No Substance Use: No Allergies-Medications (Allergen,Severity, Reaction): Coded Allergies: amlodipine (Unverified Allergy, Severe, STATINS, 07/08/17) rhabdomyosis atorvastatin (Unverified Allergy, Severe, STATINS, 07/08/17) rhabdomyosis codeine (Unverified Allergy, Severe, VOMITING, HALLUCINATIONS, 07/08/17) enoxaparin (Unverified Allergy, Severe, rhabdomylosis, 07/08/17) penicillin G (Unverified Allergy, Severe, VOMITING, HIVES, 07/08/17) pravastatin (Unverified Allergy, Severe, STATINS, 07/08/17) rhabdomyosis sertraline (Unverified Allergy, Severe, "RHABDOMYOLYSIS", 07/08/17) simvastatin (Unverified Allergy, Severe, STATINS, 07/08/17) rhabdomyosis heparin (porcine) (Unverified Adverse Reaction, Severe, rhabdomyalosis, ) Uncoded Allergies: "STATINS" (Allergy, Severe, 04/04/09) Reported Meds & Prescriptions Reported Meds & Active Scripts Active Reported Topiramate 50 Mg Tab 100 Mg PO BID Morphabond ER 12 HR (Morphine Sulfate) 30 Mg Tab 40 Mg PO Q12H Duloxetine DR (Duloxetine HCl) 20 Mg Capdr 20 Mg PO HS Anoro Ellipta Inh (Umeclidinium/Vilanterol) 62.5-25 Mcg/Act Aero 1 Puff INH DAILY Vitamin D-1000 (Cholecalciferol) 1,000 Unit Tab 2,000 Units PO DAILY Zantac (Ranitidine HCl) 150 Mg Tab 75 Mg PO DAILY Zofran Odt (Ondansetron Odt) 4 Mg Tab 4 Mg SL Q8HR PRN Maxzide-25 (Triamterene-Hydrochlorothiazide) 37.5-25 Mg Tab 1 Tab PO DAILY Plavix (Clopidogrel Bisulfate) 75 Mg Tab 75 Mg PO DAILY Lopressor (Metoprolol Tartrate) 50 Mg Tab 50 Mg PO BID Xanax Xr 24 HR (Alprazolam) 0.5 Mg Tab 0.5 Mg PO DAILY Take tablet intact, preferably in the morning. Flonase Allergy Relief Children Nasal [place] (Fluticasone Nasal [place]) 50 Mcg/ Act [place] 2 [place] EACH NARE DAILY 50 mcg/spray Proventil Hfa 6.7 GM Inh (Albuterol Sulfate) 90 Mcg/Act Aer 2 Puff INH Q4-6H PRN Lamotrigine ER (Lamotrigine) 100 Mg Odalys 100 Mg PO BID Fexofenadine (Fexofenadine HCl) 180 Mg Tab 180 Mg PO DAILY Bupropion HCl ER 12 HR (Bupropion HCl) 150 Mg Tab 150 Mg PO BID Potassium Chloride ER (Potassium Chloride) 10 Meq Cap 10 Meq PO DAILY Isosorbide Mononitrate ER (Isosorbide Mononitrate) 30 Mg Odalys 30 Mg PO DAILY [Mso4 Pump] 8.028 Mg IMPLANPUMP CONTINUOUS Review of Systems Except as stated in HPI: all other systems reviewed are Neg General / Constitutional: Positive: Chills, No: Fever HENT: No: Congestion Cardiovascular: No: Chest Pain or Discomfort, Palpitations, Diaphoresis, Syncope (near syncope) Respiratory: No: Shortness of Breath Gastrointestinal: Positive: Nausea, Diarrhea, Abdominal Pain (chronic), No: Vomiting Genitourinary: No: Urgency, Frequency, Dysuria, Hematuria, Flank Pain Musculoskeletal: No: Myalgias Skin: No Rash Neurologic: Positive: Weakness, Dizziness, No: Syncope, Focal Abnormalities, Coordination Problem Psychiatric: No: Anxiety Endocrine: No: Heat Intolerance, Cold Intolerance Hematologic/Lymphatic: No: Easy Bruising Physical Exam Narrative GENERAL: Well-developed well-nourished obese female no acute distress no respiratory distress. SKIN: Warm and dry. HEAD: Normocephalic. EYES: No scleral icterus. No injection or drainage. NECK: Supple, trachea midline. No JVD or lymphadenopathy. CARDIOVASCULAR: Decreased regular rate and rhythm without murmurs, gallops, or rubs. RESPIRATORY: Breath sounds equal bilaterally. No accessory muscle use. GASTROINTESTINAL: Abdomen soft, non-tender, nondistended. Mild bilateral upper quadrant tenderness to palpation without guarding or rebound abdominal wall scar consistent with morphine pump placement and palpable device subcutaneously no redness no induration no tenderness no increased warmth. No guarding or rebound. Rectal exam: Normal sphincter tone mucus on exam glove Hemoccult negative no palpable rectal mass. MUSCULOSKELETAL: No cyanosis, or edema. Radial and dorsalis pedis pulses 2+ to palpation. BACK: Nontender without obvious deformity. No CVA tenderness. Data Data Last Documented VS Vital Signs Date Time Temp Pulse Resp B/P (MAP) Pulse Ox O2 Delivery O2 Flow Rate FiO2 07/08/17 21:00 52 18 116/70 (85) 98 Room Air 07/08/17 18:17 98.1 Orders Orders Electrocardiogram (07/08/17 19:24) Complete Blood Count With Diff (07/08/17 19:24) Comprehensive Metabolic Panel (07/08/17 19:24) Magnesium (Mg) (07/08/17 19:24) Ckmb (Isoenzyme) Profile (07/08/17 19:24) Troponin I (07/08/17 19:24) Urinalysis - C+S If Indicated (07/08/17 19:24) Chest, Single Ap (07/08/17 19:24) Ecg Monitoring (07/08/17 19:24) Iv Access Insert/Monitor (07/08/17 19:24) Oximetry (07/08/17 19:24) Sodium Chloride 0.9% Flush (Ns Flush) (07/08/17 19:30) Sodium Chlorid 0.9% 500 Ml Inj (Ns 500 M (07/08/17 19:30) Sodium Chlorid 0.9% 500 Ml Inj (Ns 500 M (07/08/17 22:15) Glucagon Inj (Glucagon Inj) (07/08/17 22:45) Admit Order (Ed Use Only) (07/08/17 ) [facility] / Telemetry [id number] (07/08/17 23:21) Activity Bed Rest (07/08/17 23:21) Notify Dr: Other (07/08/17 23:21) Labs Laboratory Tests Test 07/08/17 19:30 07/08/17 22:22 White Blood Count 8.8 TH/MM3 Red Blood Count 5.26 MIL/MM3 Hemoglobin 15.2 GM/DL Hematocrit 46.1 % Mean Corpuscular Volume 87.6 FL Mean Corpuscular Hemoglobin 28.8 PG Mean Corpuscular Hemoglobin Concent 32.9 % Red Cell Distribution Width 14.5 % Platelet Count 333 TH/MM3 Mean Platelet Volume 8.0 FL Neutrophils (%) (Auto) 59.9 % Lymphocytes (%) (Auto) 31.6 % Monocytes (%) (Auto) 6.7 % Eosinophils (%) (Auto) 1.2 % Basophils (%) (Auto) 0.6 % Neutrophils # (Auto) 5.3 TH/MM3 Lymphocytes # (Auto) 2.8 TH/MM3 Monocytes # (Auto) 0.6 TH/MM3 Eosinophils # (Auto) 0.1 TH/MM3 Basophils # (Auto) 0.0 TH/MM3 CBC Comment DIFF FINAL Differential Comment Blood Urea Nitrogen 23 MG/DL Creatinine 1.85 MG/DL Random Glucose 80 MG/DL Total Protein 8.3 GM/DL Albumin 4.4 GM/DL Calcium Level 9.6 MG/DL Magnesium Level 2.3 MG/DL Alkaline Phosphatase 276 U/L Aspartate Amino Transf (AST/SGOT) 55 U/L Alanine Aminotransferase (ALT/SGPT) 66 U/L Total Bilirubin 0.5 MG/DL Sodium Level 139 MEQ/L Potassium Level 3.6 MEQ/L Chloride Level 100 MEQ/L Carbon Dioxide Level 29.0 MEQ/L Anion Gap 10 MEQ/L Estimat Glomerular Filtration Rate 27 ML/MIN Total Creatine Kinase 51 U/L Troponin I LESS THAN 0.02 NG/ML Urine Color YELLOW Urine Turbidity CLEAR Urine pH 5.5 Urine Specific [place] 1.015 Urine Protein NEG mg/dL Urine Glucose (UA) NEG mg/dL Urine Ketones NEG mg/dL Urine Occult Blood NEG Urine Nitrite NEG Urine Bilirubin NEG Urine Urobilinogen 0.2 MG/DL Urine Leukocyte Esterase TRACE Urine RBC 39 /hpf Urine WBC 5 /hpf Urine Squamous Epithelial Cells 1 /hpf Urine Amorphous Sediment RARE Microscopic Urinalysis Comment CULT NOT INDICATED MDM Medical Decision Making Medical Screen Exam Complete: Yes Emergency Medical Condition: Yes Medical Record Reviewed: Yes Differential Diagnosis Generalized weakness, near syncope, arrhythmia, adverse medication reaction, conduction disturbance, GI bleed, anemia, thyroid dysfunction, ACS Narrative Course Patient placed on cardiac rehabilitation specialist with continuous pulse oximetry IV access obtained orthostatic measurements ordered Patient does demonstrate orthostatic change the pressure supine to standing with persistent bradycardia 49-55 bpm. Patient does take Lopressor 50 mg twice daily reportedly did take her morning dose of 50 mg of Lopressor today upon initial evaluation in the emergency department blood pressure is 90/56. Patient 's primary provider is Dr. Olson derrick worker well service is Dr. Lara, pain management doctor and psychiatrist [facility] Point of Care Internal Pos. & Neg. Controls: Passed Fecal Specimen Occult Blood: Negative Physician Communication Physician Communication discussed with Dr Roberts -- OBS Diagnosis Primary Impression: Postural dizziness with near syncope Additional Impressions: Bradycardia Renal insufficiency Admitting Information Admitting Physician Requests: Observation Eden De Leon MD July 08, 2017 19:34
[2017-07-08 19:48] LABS: AUTOMATED NEUTROPHIL # 5.3 TH/MM3 (1.8-7.7); BASOPHIL % 0.6 % (0.0-2.0); EOSINOPHIL # 0.1 TH/MM3 (0-0.4); EOSINOPHIL % 1.2 % (0.0-4.0); HEMATOCRIT 46.1 % (35.0-46.0); HEMOGLOBIN 15.2 GM/DL (11.6-15.3); LYMPH % 31.6 % (9.0-44.0); LYMPHOCYTE # 2.8 TH/MM3 (1.0-4.8); MEAN CELL VOLUME 87.6 FL (80.0-100.0); MEAN CORPUSCULAR HEMOGLOBIN 28.8 PG (27.0-34.0); MEAN CORPUSCULAR HGB CONC 32.9 % (32.0-36.0); MONO % 6.7 % (0.0-8.0); MONOCYTE # 0.6 TH/MM3 (0-0.9); NEUT % 59.9 % (16.0-70.0); PLATELET COUNT 333 TH/MM3 (150-450); RED BLOOD COUNT 5.26 MIL/MM3 (4.00-5.30); RED CELL DISTRIBUTION WIDTH 14.5 % (11.6-17.2); WHITE BLOOD COUNT 8.8 TH/MM3 (4.0-11.0)
[2017-07-08 19:51] VITALS: RESP 20
--- NOTE | 2017-07-08 20:00 | RADRPT ---
EXAM DATE/TIME: 07/08/2017 19:27 [facility] COMPARISON: CHEST SINGLE AP, August 29, 2014, 15:00. INDICATIONS : Low BP. Palpations. Dizzyness X 1 week MEDICAL HISTORY : None. SURGICAL HISTORY : None. ENCOUNTER: Initial ACUITY: 1 week PAIN SCORE: 0/10 LOCATION: Bilateral chest FINDINGS: A single view of the chest demonstrates the lungs to be symmetrically aerated without evidence of mas s, infiltrate or effusion. Linear scarring within the lingula. The cardiomediastinal contours are un remarkable. Osseous structures are intact. CONCLUSION: No acute disease. Moe Albert Jr., MD on July 08, 2017 at 19:58 Board Certified Radiologist. This report was verified electronically.
[2017-07-08 20:09] LABS: ALBUMIN 4.4 GM/DL (3.4-5.0); ALT (GPT) 66 U/L (10-53); AST (GOT) 55 U/L (15-37); BLOOD UREA NITROGEN 23 MG/DL (7-18); CALCIUM 9.6 MG/DL (8.5-10.1); CHLORIDE 100 MEQ/L (98-107); CREATININE 1.85 MG/DL (0.50-1.00); GLOMERULAR FILTRATION RATE 27 ML/MIN (>89); GLUCOSE,RANDOM 80 MG/DL (74-106); MAGNESIUM 2.3 MG/DL (1.5-2.5); SODIUM (NA) 139 MEQ/L (136-145)
[2017-07-08 20:13] LABS: ALKALINE PHOSPHATASE 276 U/L (45-117); TOTAL BILIRUBIN ADULT 0.5 MG/DL (0.2-1.0); TOTAL PROTEIN 8.3 GM/DL (6.4-8.2); TROPONIN I LESS THAN 0.02 NG/ML (0.02-0.05)
[2017-07-08 21:00] VITALS: BP 116/70; PULSE 52; RESP 18; O2SAT 98
[2017-07-08 22:36] LABS: BILIRUBIN, URINE NEG (NEG); BLOOD, URINE NEG (NEG); GLUCOSE,URINE NEG (NEG); KETONE, URINE NEG (NEG); NITRITE,URINE NEG (NEG); PH, URINE 5.5 (5.0-8.5); URINE COLOR YELLOW (YELLW/STRAW); URINE LEUKOCYTE ESTERASE TRACE (NEG)
[2017-07-08 22:39] LABS: AMORPHOUS SEDIMENT, URINE RARE; SQUAMOUS EPITHELIAL CELL URINE 1 /hpf (0-5)
[2017-07-08] MEDS ORDERED: GLUCAGON 1 MG/ML VIAL IV PUSH ONE (22:45)
[2017-07-08] MEDS ORDERED: SODIUM CHLORIDE 0.9% FLUSH 10 ML FLUSH IV FLUSH PRN (23:30)
[2017-07-08] MEDS ORDERED: ONDANSETRON ODT 4 MG TAB SL PRN (23:30)
[2017-07-09] VITALS (11 sets, daily range): BP systolic 98–140; BP diastolic 56–74; PULSE 48–65; RESP 16–18; TEMP 97.8–98.4; O2SAT 93–97
[2017-07-09] MEDS ORDERED: [UNRECOGNIZED DRUG - OTHER] OTHER SCH (00:30)
[2017-07-09] MEDS: lamoTRIgine 100 MG TAB PO SCH ×3 (01:48→21:03)
[2017-07-09] MEDS: 1/2 NS + KCL 20 MEQ INJ 1,000 ML IV SCH ×2 (01:48→17:24)
[2017-07-09 04:44] LABS: AUTOMATED NEUTROPHIL # 5.9 TH/MM3 (1.8-7.7); BASOPHIL % 0.4 % (0.0-2.0); EOSINOPHIL # 0.1 TH/MM3 (0-0.4); EOSINOPHIL % 1.3 % (0.0-4.0); HEMATOCRIT 42.5 % (35.0-46.0); HEMOGLOBIN 14.2 GM/DL (11.6-15.3); LYMPH % 35.4 % (9.0-44.0); LYMPHOCYTE # 3.7 TH/MM3 (1.0-4.8); MEAN CELL VOLUME 88.1 FL (80.0-100.0); MEAN CORPUSCULAR HEMOGLOBIN 29.4 PG (27.0-34.0); MEAN CORPUSCULAR HGB CONC 33.4 % (32.0-36.0); MEAN PLATELET VOLUME 7.7 FL (7.0-11.0); MONO % 7.6 % (0.0-8.0); MONOCYTE # 0.8 TH/MM3 (0-0.9); NEUT % 55.3 % (16.0-70.0); PLATELET COUNT 250 TH/MM3 (150-450); RED BLOOD COUNT 4.83 MIL/MM3 (4.00-5.30); WHITE BLOOD COUNT 10.6 TH/MM3 (4.0-11.0)
[2017-07-09 05:01] LABS: BICARBONATE 26.6 MEQ/L (21.0-32.0); CALCIUM 9.3 MG/DL (8.5-10.1); CREATININE 1.52 MG/DL (0.50-1.00)
[2017-07-09] MEDS: ISOSORBIDE MONONITRATE 30 MG CR TAB (IMDUR) PO SCH (06:27)
--- NOTE | 2017-07-09 08:48 | HHI.HP ---
HPI Service [facility] Primary Care Physician Barbie Coulter MD Admission Diagnosis bradycardia; near syncope Chief Complaint: Dizziness, near syncope Travel History International Travel<30 Days: No Contact w/Intl Traveler <30 Da: No Traveled to Known Affected Are: No History of Present Illness Mrs. Crews is a pleasant 67 y/o WF with HTN, CAD with hx of SD, hx of RCC s/ p right nephrectomy, COPD/Chronic bronchitis, CKD, stage 3, Diabetes mellitus, Bipolar Disorder, GERD/Hx of duodenal ulcer, and Fibromyalgia who presented to the ED at [facility] [place] a local [facility] urgent care with complaints of generalized weakness and dizziness with near syncope 1 week. Patient reports that for the last week she has been experiencing dizziness, weakness and near syncope when transitioning from lying down to sitting or standing position. She will experience tunnel vision and feel that she is going to pass out. Pt was evaluated in urgent care yesterday and noted to have orthostatic hypotension and was encouraged to come to the emergency room for evaluation. Patient denies any headache, chest pain, altered mentation, visual disturbance and denies any new upper or lower extremity numbness tingling or weakness. Patient does not feel ataxic but does note she is quite dizzy and lightheaded upon standing which improves with sitting or lying supine. She has recently had an intentional weight loss of approximately 50 pounds over the last 5 months and has noted that her blood pressure has been lower without recent adjustment of her antihypertensive medication. Patient also recently within the past 2 weeks had refill of her morphine pump and states they did not adjust the dosing but she denies being more somnolent since the refill of her morphine pump. Patient denies any history of cardiac arrhythmia and has had no palpitations. Patient has had some nausea without vomiting has chronic upper abdominal discomfort with history of irritable bowel syndrome and has noted alternating between diarrhea and constipation which is typical for her. Denies any melena or hematochezia. Patient denies any urinary symptoms no dysuria frequency urgency flank pain or hematuria. In the ED pt was noted to be orthostatic and was started on IVF. Her HR has been in the 40-50's in sinus rhythm on telemetry. She normally takes Metoprolol 100mg po BID and Maxide 37.5/25 po daily. Her last dose of Metoprolol was on the morning of 07/08/17. Review of Systems Constitutional: COMPLAINS OF: Weight loss, Dizziness, DENIES: Fever, Chills Eyes: COMPLAINS OF: Eye inflammation (conjuctival erythema of the left eye), DENIES: Vision loss Ears, nose, mouth, throat: DENIES: Hearing loss Respiratory: COMPLAINS OF: Shortness of breath (chronic exertional dyspnea), DENIES: Cough Cardiovascular: COMPLAINS OF: Dyspnea on Exertion (chronic), DENIES: Chest pain , Palpitations, Lower Extremity Edema Gastrointestinal: COMPLAINS OF: Constipation, Diarrhea, Nausea, DENIES: Abdominal pain, Vomiting Genitourinary: DENIES: Urgency, Dysuria Musculoskeletal: DENIES: Back pain Integumentary: DENIES: Rash Neurologic: DENIES: Headache Psychiatric: DENIES: Confusion Past Family Social History Past Medical History Anxiety Bipolar disorder Chronic back pain with implanted Morphine pump CAD with hx of SD COPD/Chronic bronchitis CKD, stage 3 Diabetes mellitus, type 2 Depression GERD/Hx of duodenal ulcer Fibromyalgia HTN Hyperlipidemia Nonthrombocytopenic purpura Hx of RCC, right kidney s/p nephrectomy Obesity Vitamin D deficiency Past Surgical History left ankle surgery Right nephrectomy Lumbar fusion Left knee surgery Breast biopsy Cesarian section Cholecystectomy Diagnostic laparotomy in 2009 for perforated viscus Carpal tunnel surgery Total abdominal hysterectomy Reported Medications -Topiramate 100 Mg PO BID -Duloxetine DR 20 Mg PO HS -Anoro Ellipta Inh 62.5-25 Mcg/Act Aero 1 Puff INH DAILY -Vitamin D-1000 2,000 Units PO DAILY -Zantac 75 Mg PO DAILY -Zofran Odt 4 Mg SL Q8HR PRN -Maxzide-25 37.5-25 Mg Tab 1 Tab PO DAILY -Plavix 75 Mg PO DAILY -Lopressor 50 Mg PO BID -Xanax Xr 24 HR 0.5 Mg PO TID PRN -Flonase Allergy Relief Children Nasal [place] 50 Mcg/Act [place] 2 [place] EACH NARE DAILY -Proventil Hfa 6.7 GM Inh 90 Mcg/Act Aer 2 Puff INH Q4-6H PRN -Lamotrigine ER 100 Mg PO BID -Fexofenadine 180 Mg PO DAILY -Bupropion HCl ER 12 HR 150 Mg PO BID -Potassium Chloride ER 10 Meq PO DAILY -Isosorbide Mononitrate ER 30 Mg PO DAILY -[Mso4 Pump] 8.028 Mg IMPLANPUMP CONTINUOUS ?Morphabond ER 12 HR (Morphine Sulfate) 30 Mg Tab 40 Mg PO Q12H Allergies: Coded Allergies: amlodipine (Unverified Allergy, Severe, STATINS, 07/08/17) rhabdomyosis atorvastatin (Unverified Allergy, Severe, STATINS, 07/08/17) rhabdomyosis codeine (Unverified Allergy, Severe, VOMITING, HALLUCINATIONS, 07/08/17) enoxaparin (Unverified Allergy, Severe, rhabdomylosis, 07/08/17) penicillin G (Unverified Allergy, Severe, VOMITING, HIVES, 07/08/17) pravastatin (Unverified Allergy, Severe, STATINS, 07/08/17) rhabdomyosis sertraline (Unverified Allergy, Severe, "RHABDOMYOLYSIS", 07/08/17) simvastatin (Unverified Allergy, Severe, STATINS, 07/08/17) rhabdomyosis heparin (porcine) (Unverified Adverse Reaction, Severe, rhabdomyalosis, ) Uncoded Allergies: "STATINS" (Allergy, Severe, 04/04/09) Family History Noncontributory Social History Denies any alcohol, tobacco or illicit drug use Pt lives at home with her Physical Exam Vital Signs Vital Signs Date Time Temp Pulse Resp B/P (MAP) Pulse Ox O2 Delivery O2 Flow Rate FiO2 07/09/17 05:50 50 07/09/17 05:06 98.4 48 16 117/56 (76) 97 07/09/17 00:41 97.8 52 16 140/74 (96) 93 07/08/17 21:00 52 18 116/70 (85) 98 Room Air 07/08/17 19:51 20 07/08/17 19:11 50 18 113/69 (84) 98 Room Air 07/08/17 18:47 55 18 126/73 (90) 49 22 122/68 (86) 55 24 103/67 (79) 07/08/17 18:34 50 18 122/68 (86) 98 Room Air 07/08/17 18:31 50 18 97 Room Air 07/08/17 18:17 98.1 50 20 101/75 (84) 96 Physical Exam GENERAL: This is a well-nourished, well-developed patient, in no apparent distress. SKIN: No rashes, ecchymoses or lesions. Cool and dry. HEENT: Atraumatic. Normocephalic. No temporal or scalp tenderness. Left eye with conjunctival and scleral erythema/injection with some clear discharge. Uvula midline. Airway patent. NECK: Trachea midline, supple, nontender. CARDIO: Regular, bradycardic. RESP: CTA bilaterally. No wheezes, rales, or rhonchi. ABD: +BS, soft, non-tender, nondistended. No hepato-splenomegaly, or palpable masses. No guarding. EXT: Extremities without clubbing, cyanosis, or edema. NEURO: Awake and alert. Motor and sensory grossly within normal limits. Normal speech. Laboratory Laboratory Tests Test 07/08/17 19:30 07/08/17 22:22 07/09/17 04:19 White Blood Count 8.8 10.6 Red Blood Count 5.26 4.83 Hemoglobin 15.2 14.2 Hematocrit 46.1 42.5 Mean Corpuscular Volume 87.6 88.1 Mean Corpuscular Hemoglobin 28.8 29.4 Mean Corpuscular Hemoglobin Concent 32.9 33.4 Red Cell Distribution Width 14.5 14.0 Platelet Count 333 250 Mean Platelet Volume 8.0 7.7 Neutrophils (%) (Auto) 59.9 55.3 Lymphocytes (%) (Auto) 31.6 35.4 Monocytes (%) (Auto) 6.7 7.6 Eosinophils (%) (Auto) 1.2 1.3 Basophils (%) (Auto) 0.6 0.4 Neutrophils # (Auto) 5.3 5.9 Lymphocytes # (Auto) 2.8 3.7 Monocytes # (Auto) 0.6 0.8 Eosinophils # (Auto) 0.1 0.1 Basophils # (Auto) 0.0 0.0 CBC Comment DIFF FINAL DIFF FINAL Differential Comment Blood Urea Nitrogen 23 21 Creatinine 1.85 1.52 Random Glucose 80 87 Total Protein 8.3 Albumin 4.4 Calcium Level 9.6 9.3 Magnesium Level 2.3 Alkaline Phosphatase 276 Aspartate Amino Transf (AST/SGOT) 55 Alanine Aminotransferase (ALT/SGPT) 66 Total Bilirubin 0.5 Sodium Level 139 141 Potassium Level 3.6 3.3 Chloride Level 100 105 Carbon Dioxide Level 29.0 26.6 Anion Gap 10 9 Estimat Glomerular Filtration Rate 27 34 Total Creatine Kinase 51 Troponin I LESS THAN 0.02 Ethyl Alcohol Level LESS THAN 3 Urine Color YELLOW Urine Turbidity CLEAR Urine pH 5.5 Urine Specific [place] 1.015 Urine Protein NEG Urine Glucose (UA) NEG Urine Ketones NEG Urine Occult Blood NEG Urine Nitrite NEG Urine Bilirubin NEG Urine Urobilinogen 0.2 Urine Leukocyte Esterase TRACE Urine RBC 39 Urine WBC 5 Urine Squamous Epithelial Cells 1 Urine Amorphous Sediment RARE Microscopic Urinalysis Comment CULT NOT INDICATED Urine Opiates Screen POS Urine Barbiturates Screen NEG Urine Amphetamines Screen NEG Urine Benzodiazepines Screen NEG Urine Cocaine Screen NEG Urine Cannabinoids Screen NEG Result Diagram: 07/09/17 0419 07/09/179 Imaging Last Impressions Chest X-Ray 07/08/171923 Signed Impressions: Service Date/Time: Saturday, July 08, 2017 19:27 - CONCLUSION: No acute disease. MD Yojana Ahmadi Jr. VTE Risk Assessment Yojana VTE Risk Assessment: Mod/High Risk (score >= 2) [place] Risk Assessment Model Point Value = 1 Point Value = 2 Point Value = 3 Point Value = 5 Age 41-60 Minor surgery BMI > 25 kg/m2 Swollen legs Varicose veins or History of unexplained or recurrent spontaneous Oral contraceptives or hormone replacement Sepsis (< 1 month) Serious lung disease, including pneumonia (< 1 month) Abnormal pulmonary function Acute myocardial infarction Congestive heart failure (< 1 month) History of inflammatory bowel disease Medical patient at bed rest Age 61-74 Arthroscopic surgery Major open surgery (> 45 min) Laparoscopic surgery (> 45 min) Malignancy Confined to bed (> 72 hours) Immobilizing plaster cast Central venous access Age >= 75 History of VTE Family history of VTE Factor V Leiden Prothrombin [id number] Lupus anticoagulant Anticardiolipin antibodies Elevated serum homocysteine Heparin-induced thrombocytopenia Other congenital or acquired thrombophilia Stroke (< 1 month) Elective arthroplasty Hip, pelvis, or leg fracture Acute spinal cord injury (< 1 month) Prophylaxis Regimen Total Risk Factor Score Risk Level Prophylaxis Regimen 0-1 Low Early ambulation 2 Moderate Order ONE of the following: *Sequential Compression Device (SCD) *Heparin 5000 units SQ BID 3-4 Higher Order ONE of the following medications: *Heparin 5000 units SQ TID *Enoxaparin/Lovenox 40 mg SQ daily (WT < 150 kg, CrCl > 30 mL/min) *Enoxaparin/Lovenox 30 mg SQ daily (WT < 150 kg, CrCl > 10-29 mL/min) *Enoxaparin/Lovenox 30 mg SQ BID (WT < 150 kg, CrCl > 30 mL/min) AND/OR *Sequential Compression Device (SCD) 5 or more Highest Order ONE of the following medications: *Heparin 5000 units SQ TID (Preferred with Epidurals) *Enoxaparin/Lovenox 40 mg SQ daily (WT < 150 kg, CrCl > 30 mL/min) *Enoxaparin/Lovenox 30 mg SQ daily (WT < 150 kg, CrCl > 10-29 mL/min) *Enoxaparin/Lovenox 30 mg SQ BID (WT < 150 kg, CrCl > 30 mL/min) AND *Sequential Compression Device (SCD) Assessment and Plan Problem List: (1) Orthostatic hypotension ICD Codes: I95.1 - Orthostatic hypotension Status: Acute Plan: - Pt is a pleasant 67 y/o WF with HTN, CAD with hx of SD, hx of RCC s/p right nephrectomy, COPD/Chronic bronchitis, CKD, stage 3, Diabetes mellitus, Bipolar Disorder, GERD/Hx of duodenal ulcer, and Fibromyalgia who presented to the ED at [facility] a local [facility] urgent care with complaints of generalized weakness and dizziness with near syncope 1 week. - Patient reports that for the last week she has been experiencing dizziness, weakness and near syncope when transitioning from lying down to sitting or standing position. She will experience tunnel vision and feel that she is going to pass out. Pt was evaluated in urgent care yesterday and noted to have orthostatic hypotension and was encouraged to come to the emergency room for evaluation. Patient does not feel ataxic but does note she is quite dizzy and lightheaded upon standing which improves with sitting or lying supine. She has recently had an intentional weight loss of approximately 50 pounds over the last 5 months and has noted that her blood pressure has been lower without recent adjustment of her antihypertensive medication. Patient also recently within the past 2 weeks had refill of her morphine pump and states they did not adjust the dosing but she denies being more somnolent since the refill of her morphine pump. - In the ED pt was noted to be orthostatic and was started on IVF. - Her HR has been in the 40-50's in sinus rhythm on telemetry. She normally takes Metoprolol 100mg po BID and Maxide 37.5/25 po daily. Her last dose of Metoprolol was on the morning of 07/08/17. - Pt still with orthostasis this morning and HR still in the low 50's. We will hold her Metoprolol at this time. Hold her Maxzide. - Monitor orthostatic vitals today - KALEE will - Discussed transitioning between positions slowly with a 10 count in between. - Cont. IVF for now - Check 2D echo - Telemetry - Carotid US ordered - Supportive care - Further recommendations as the case develops - DVT prophylaxis with SCDs (2) Bradycardia ICD Codes: R00.1 - Bradycardia, unspecified Status: Acute Plan: - See above (3) Postural dizziness with near syncope ICD Codes: R42 - Dizziness and giddiness; R55 - Syncope and collapse Status: Acute Plan: - See above (4) HTN (hypertension) ICD Codes: I10 - Essential (primary) hypertension Status: Chronic Plan: - Home BP meds on hold currently due to orthostatic hypotension (5) Diabetes mellitus type 2, diet-controlled ICD Codes: E11.9 - Type 2 diabetes mellitus without complications Status: Chronic Plan: - Diet controlled (6) CKD (chronic kidney disease), stage III ICD Codes: N18.3 - Chronic kidney disease, stage 3 (moderate) Status: Chronic Plan: - Labs stable (7) Renal cell carcinoma of right kidney ICD Codes: C64.1 - Malignant neoplasm of right kidney, except renal pelvis Status: Acute Plan: - Pt follows with Dr. Malave and Dr. Mccormack as an outpt (8) Fibromyalgia ICD Codes: M79.7 - Fibromyalgia Status: Chronic Plan: - pt with implanted Morphine pain pump Assessment and Plan Patient examined. Assessment and plan formulated with Bernie Powell PA-C. I agree with the above. Pt presented with c/o dizziness particulary with standing/walking. Pt has intentionally lost weight 50 pounds. No medication change outpt. Will stop metoprolol. Obtain carotid US, echocardiogram. Anticipate d/c in next 1-2 days. Bernie Powell July 09, 2017 08:48 Benjie Roberts DO July 10, 2017 12:20
[2017-07-09] MEDS ORDERED: ALPRAZolam 0.25 MG TAB PO SCH (09:00)
[2017-07-09] MEDS: SODIUM CHLORIDE 0.9% FLUSH 10 ML FLUSH IV FLUSH SCH ×2 (09:00→21:00)
[2017-07-09] MEDS ORDERED: METOPROLOL TARTRATE 25 MG TAB PO SCH (09:00)
[2017-07-09] MEDS ORDERED: POTASSIUM CHLORIDE 20 MEQ CONTROLLED RELEASE TAB PO ONE (09:15)
[2017-07-09] MEDS ORDERED: ALPRAZolam 0.25 MG TAB PO PRN (09:15)
[2017-07-09] MEDS: UMECLIDINIUM 62.5 MCG/VILANTEROL 25 MCG INHALER INH SCH (09:31)
[2017-07-09] MEDS: FAMOTIDINE 20 MG TAB PO SCH (09:31)
[2017-07-09] MEDS: TOPIRAMATE 100 MG TAB PO SCH ×2 (09:31→21:03)
[2017-07-09] MEDS: buPROPion HCL 150 MG SUSTAINED RELEASE TAB PO SCH ×2 (09:31→21:03)
[2017-07-09] MEDS: CLOPIDOGREL 75 MG TAB PO SCH (09:31)
--- NOTE | 2017-07-09 10:29 | RADRPT ---
EXAM DATE: 07/09/2017 10:20 AM EDT AGE/SEX: 67 years / Female INDICATIONS: Syncope. CLINICAL DATA: This is the patient's initial encounter. Patient reports that signs and symptoms have been present for 1 day and indicates a pain score of 0/10. MEDICAL/SURGICAL HISTORY: Hypercholesterolemia. Hypertension. Chronic obstructive pulmonary d isease. Myocardial infarction. Asthma. Dyspnea. GERD. Hiatal hernia. Renal failure. Renal cancer. Fi bromyalgia. Cholecystectomy. Hysterectomy. section. Heart stents x 4. Exploratory GI. Ri ght kidney removed. Carpal tunnel. Left ankle surgery. Left knee surgery. COMPARISON: No prior [facility] exams available for comparison. No external comparison. VELOCITY PARAMETERS: ICA/CCA Ratio: Right 0.5 , Left 0.8 ICA: Right 54 cm/sec, Left 62 cm/sec CCA: Right 111 cm/sec, Left 78 cm/sec ECA: Right 76 cm/sec, Left 78 cm/sec Vertebral: Right 39 cm/sec antegrade, Left 44 cm/sec antergrade FINDINGS: Right Carotid: No significant stenosis is visualized. The waveforms are within normal limits. Left Carotid: No significant stenosis is visualized. The waveforms are within normal limits. Other: None. CONCLUSION: 1. Minimal carotid plaque without significant flow-limiting stenosis. 2. Antegrade vertebral artery flow bilaterally. Electronically signed by: Ankit Edmondson MD 07/09/2017 10:28 AM EDT
[2017-07-09] MEDS ORDERED: CIPROFLOXACIN 0.3% OPTH SOLN 2.5 ML BTL LEFT EYE SCH (12:00)
[2017-07-09] MEDS: CIPROFLOXACIN 0.3% LEFT EYE SCH ×4 (13:15→23:55)
--- NOTE | 2017-07-09 17:02 | EKG ---
Date Performed: 07/08/2017 Time Performed: 19:31:56 PTAGE: 67 years EKG: SINUS BRADYCARDIA INCOMPLETE RIGHT BUNDLE BRANCH BLOCK MINIMAL VOLTAGE CRITERIA FOR LVH, CO NSIDER NORMAL VARIANT NONSPECIFIC ST & T-WAVE ABNORMALITY BORDERLINE ECG PREVIOUS TRACING 08/30/2014 @ 18.35.56 Since the previous tracing, no significant change noted DOCTOR: Colin Kulkarni Interpretating Date/Time 07/09/2017 17:01:41
[2017-07-09] MEDS ORDERED: DULoxetine HCl DR 20 MG CAP PO SCH (21:00)
[2017-07-10] VITALS (7 sets, daily range): BP systolic 109–148; BP diastolic 63–82; PULSE 61–79; RESP 18–20; TEMP 97.7–98.1; O2SAT 95–96
[2017-07-10] MEDS: CIPROFLOXACIN 0.3% LEFT EYE SCH ×3 (04:08→12:17)
[2017-07-10 05:19] LABS: AUTOMATED NEUTROPHIL # 2.6 TH/MM3 (1.8-7.7); BASOPHIL % 0.4 % (0.0-2.0); EOSINOPHIL # 0.1 TH/MM3 (0-0.4); EOSINOPHIL % 1.6 % (0.0-4.0); HEMATOCRIT 40.9 % (35.0-46.0); HEMOGLOBIN 13.6 GM/DL (11.6-15.3); LYMPH % 49.5 % (9.0-44.0); LYMPHOCYTE # 3.1 TH/MM3 (1.0-4.8); MEAN CELL VOLUME 87.7 FL (80.0-100.0); MEAN CORPUSCULAR HEMOGLOBIN 29.1 PG (27.0-34.0); MEAN CORPUSCULAR HGB CONC 33.2 % (32.0-36.0); MEAN PLATELET VOLUME 7.7 FL (7.0-11.0); MONO % 6.9 % (0.0-8.0); MONOCYTE # 0.4 TH/MM3 (0-0.9); NEUT % 41.6 % (16.0-70.0); PLATELET COUNT 248 TH/MM3 (150-450); RED BLOOD COUNT 4.67 MIL/MM3 (4.00-5.30); RED CELL DISTRIBUTION WIDTH 14.4 % (11.6-17.2); WHITE BLOOD COUNT 6.2 TH/MM3 (4.0-11.0)
[2017-07-10 05:49] LABS: BICARBONATE 24.3 MEQ/L (21.0-32.0); CALCIUM 9.3 MG/DL (8.5-10.1); CREATININE 1.4 MG/DL (0.50-1.00); MAGNESIUM 2.2 MG/DL (1.5-2.5)
[2017-07-10] MEDS: ISOSORBIDE MONONITRATE 30 MG CR TAB (IMDUR) PO SCH (06:20)
[2017-07-10] MEDS: FAMOTIDINE 20 MG TAB PO SCH (08:32)
[2017-07-10] MEDS: UMECLIDINIUM 62.5 MCG/VILANTEROL 25 MCG INHALER INH SCH (08:32)
[2017-07-10] MEDS: buPROPion HCL 150 MG SUSTAINED RELEASE TAB PO SCH (08:32)
[2017-07-10] MEDS: TOPIRAMATE 100 MG TAB PO SCH (08:32)
[2017-07-10] MEDS: CLOPIDOGREL 75 MG TAB PO SCH (08:32)
[2017-07-10] MEDS: SODIUM CHLORIDE 0.9% FLUSH 10 ML FLUSH IV FLUSH SCH (08:32)
[2017-07-10] MEDS: lamoTRIgine 100 MG TAB PO SCH (08:32)
--- NOTE | 2017-07-10 11:35 | HHI.DS ---
Discharge Summary Admission Date July 08, 2017 at 23:23 Discharge Date: July 10, 2017 Admitting Diagnosis bradycardia; near syncope (1) Orthostatic hypotension Diagnosis: Principal ICD Codes: I95.1 - Orthostatic hypotension Status: Acute (2) Bradycardia Diagnosis: Principal ICD Codes: R00.1 - Bradycardia, unspecified Status: Acute (3) Postural dizziness with near syncope Diagnosis: Principal ICD Codes: R42 - Dizziness and giddiness; R55 - Syncope and collapse Status: Acute (4) HTN (hypertension) Diagnosis: Secondary ICD Codes: I10 - Essential (primary) hypertension Status: Chronic (5) Diabetes mellitus type 2, diet-controlled Diagnosis: Secondary ICD Codes: E11.9 - Type 2 diabetes mellitus without complications Status: Chronic (6) CKD (chronic kidney disease), stage III Diagnosis: Secondary ICD Codes: N18.3 - Chronic kidney disease, stage 3 (moderate) Status: Chronic (7) Dizziness Diagnosis: Secondary ICD Codes: R42 - Dizziness and giddiness Consultants None Procedures none Brief History Mrs. Crews is a pleasant 67 y/o WF with HTN, CAD with hx of NC, hx of RCC s/ p right nephrectomy, COPD/Chronic bronchitis, CKD, stage 3, Diabetes mellitus, Bipolar Disorder, GERD/Hx of duodenal ulcer, and Fibromyalgia who [place] [facility] [facility] urgent care with complaints of generalized weakness and dizziness with near syncope 1 week. Patient reports that for the last week she has been experiencing dizziness, weakness and near syncope when transitioning from lying down to sitting or standing position. She will experience tunnel vision and feel that she is going to pass out. Pt was evaluated in urgent care yesterday and noted to have orthostatic hypotension and was encouraged to come to the emergency room for evaluation. Patient denies any headache, chest pain, altered mentation, visual disturbance and denies any new upper or lower extremity numbness tingling or weakness. Patient does not feel ataxic but does note she is quite dizzy and lightheaded upon standing which improves with sitting or lying supine. She has recently had an intentional weight loss of approximately 50 pounds over the last 5 months and has noted that her blood pressure has been lower without recent adjustment of her antihypertensive medication. Patient also recently within the past 2 weeks had refill of her morphine pump and states they did not adjust the dosing but she denies being more somnolent since the refill of her morphine pump. Patient denies any history of cardiac arrhythmia and has had no palpitations. Patient has had some nausea without vomiting has chronic upper abdominal discomfort with history of irritable bowel syndrome and has noted alternating between diarrhea and constipation which is typical for her. Denies any melena or hematochezia. Patient denies any urinary symptoms no dysuria frequency urgency flank pain or hematuria. In the ED pt was noted to be orthostatic and was started on IVF. Her HR has been in the 40-50's in sinus rhythm on telemetry. She normally takes Metoprolol 100mg po BID and Maxide 37.5/25 po daily. Her last dose of Metoprolol was on the morning of 07/08/17. CBC/BMP: 07/10/17 0406 07/10/17 0406 Significant Findings Laboratory Tests Test 07/08/17 19:30 07/08/17 22:22 07/09/17 04:19 07/10/17 04:06 Hematocrit 46.1 % (35.0-46.0) Blood Urea Nitrogen 23 MG/DL (7-18) 21 MG/DL (7-18) Creatinine 1.85 MG/DL (0.50-1.00) 1.52 MG/DL (0.50-1.00) 1.40 MG/DL (0.50-1.00) Total Protein 8.3 GM/DL (6.4-8.2) Alkaline Phosphatase 276 U/L (45-117) Aspartate Amino Transf (AST/SGOT) 55 U/L (15-37) Alanine Aminotransferase (ALT/SGPT) 66 U/L (10-53) Estimat Glomerular Filtration Rate 27 ML/MIN (>89) 34 ML/MIN (>89) 38 ML/MIN (>89) Troponin I LESS THAN 0.02 NG/ML Urine RBC 39 /hpf (0-3) Urine Opiates Screen POS (NEG) Potassium Level 3.3 MEQ/L (3.5-5.1) 3.2 MEQ/L (3.5-5.1) Lymphocytes (%) (Auto) 49.5 % (9.0-44.0) Random Glucose 108 MG/DL (74-106) Imaging Last Impressions Carotid Artery Ultrasound 07/09/17 0000 Signed Impressions: CONCLUSION: Chest X-Ray 07/08/[id number] Signed Impressions: Service Date/Time: Saturday, July 08, 2017 19:27 - CONCLUSION: No acute disease. Moe Albert Jr., MD PE at Discharge GENERAL: This is a well-nourished, well-developed patient, in no apparent distress. CARDIOVASCULAR: Regular rate and rhythm RESPIRATORY: Clear to auscultation. Breath sounds equal bilaterally. GASTROINTESTINAL: Abdomen soft, non-tender, nondistended. Normal active bowel sounds MUSCULOSKELETAL: Extremities without clubbing, cyanosis, or edema. NEURO: Alert & Oriented x4 to person, place, time, situation. Moves all ext x4 Hospital Course Orthostatic hypotension - Pt is a pleasant 67 y/o WF with HTN, CAD with hx of NC, hx of RCC s/p right nephrectomy, COPD/Chronic bronchitis, CKD, stage 3, Diabetes mellitus, Bipolar Disorder, GERD/Hx of duodenal ulcer, and Fibromyalgia who [place] [facility] [facility] urgent care with complaints of generalized weakness and dizziness with near syncope 1 week. - Patient reports that for the last week she has been experiencing dizziness, weakness and near syncope when transitioning from lying down to sitting or standing position. She will experience tunnel vision and feel that she is going to pass out. Pt was evaluated in urgent care yesterday and noted to have orthostatic hypotension and was encouraged to come to the emergency room for evaluation. Patient does not feel ataxic but does note she is quite dizzy and lightheaded upon standing which improves with sitting or lying supine. She has recently had an intentional weight loss of approximately 50 pounds over the last 5 months and has noted that her blood pressure has been lower without recent adjustment of her antihypertensive medication. Patient also recently within the past 2 weeks had refill of her morphine pump and states they did not adjust the dosing but she denies being more somnolent since the refill of her morphine pump. - In the ED pt was noted to be orthostatic and was started on IVF. - Her HR has been in the 40-50's in sinus rhythm on telemetry. She normally takes Metoprolol 100mg po BID and Maxide 37.5/25 po daily. Her last dose of Metoprolol was on the morning of 07/08/17. - Pt still with orthostasis this morning and HR still in the low 50's. We will hold her Metoprolol at this time. Hold her Maxzide. - Monitor orthostatic vitals today - KALEE will - Discussed transitioning between positions slowly with a 10 count in between. - Cont. IVF for now - 2D echo pending: Plan to DC once echocardiogram completed. Patient may follow up with PCP and cards for results - Telemetry - Carotid US reviewed Minimal carotid plaque without significant flow-limiting stenosis. Antegrade vertebral artery flow bilaterally - Supportive care - Further recommendations as the case develops - PT ambulated the patient and is recommending outpatient vestibular rehab. - DVT prophylaxis with SCDs Bradycardia - See above Postural dizziness with near syncope - See above HTN (hypertension) - Home BP meds on hold currently due to orthostatic hypotension Diabetes mellitus type 2, diet-controlled - Diet controlled CKD (chronic kidney disease), stage III - Labs stable Renal cell carcinoma of right kidney - Pt follows with Dr. Malave and Dr. Mccormack as an outpt Fibromyalgia - pt with implanted Morphine pain pump Conjunctivitis left eye - cipro otic drops QID Pt Condition on Discharge: Stable Discharge Disposition: Disch w/ Home Health Serv Discharge Instructions DIET: Follow Instructions for: Heart Healthy Diet Activities you can perform: Weight Bearing as Martir Follow up Referrals: Cardiology - [address] Lara PCP Follow-up - [address] Coulter New Medications: Ciprofloxacin Opth Drops (Ciprofloxacin Opth Drops) 0.3% Soln 2 DROP EACH EYE Q4H for Infection for 5 Days, #1 BOTTLE 0 Refills while awake x 5 days. Continued Medications: Albuterol 6.7 GM Inh (Proventil Hfa 6.7 GM Inh) 90 Mcg/Act Aer 2 PUFF INH Q4-6H PRN for SHORTNESS OF BREATH, #1 INHALER 0 Refills Alprazolam ER 24 HR (Xanax Xr 24 HR) 0.5 Mg Tab 0.5 MG PO TID PRN for anxiety, #30 TAB 0 Refills Take tablet intact, preferably in the morning. Bupropion HCl ER 12 HR (Bupropion HCl ER 12 HR) 150 Mg Tab 150 MG PO BID, #60 TAB Cholecalciferol (Vitamin D-1000) 1,000 Unit Tab 2000 UNITS PO DAILY for Nutritional Supplement, #1 BOTTLE 0 Refills Clopidogrel (Plavix) 75 Mg Tab 75 MG PO DAILY for Blood Clot Prevention, #30 TAB [address] (Duloxetine DR) 20 Mg Capdr 20 MG PO HS, #30 CAP 0 Refills Fexofenadine (Fexofenadine) 180 Mg Tab 180 MG PO DAILY for Allergy Management, #30 TAB 0 Refills Fluticasone Nasal [place] (Flonase Allergy Relief Children Nasal [place]) 50 Mcg/ Act [place] 2 SPRAY EACH NARE DAILY for Allergy Management, #1 BOTTLE 0 Refills 50 mcg/spray Isosorbide Mononitrate ER (Isosorbide Mononitrate ER) 30 Mg Odalys 30 MG PO DAILY for Prevent Chest Pain, #30 TAB 0 Refills Lamotrigine ER (Lamotrigine ER) 100 Mg Odalys 100 MG PO BID for Control Seizures, #30 TAB 0 Refills Ondansetron Odt (Zofran Odt) 4 Mg Tab 4 MG SL Q8HR PRN for Nausea/Vomiting, #30 TAB 0 Refills Potassium Chloride ER (Potassium Chloride ER) 10 Meq Cap 10 MEQ PO DAILY for Electrolyte Replacement, #30 CAP 0 Refills Ranitidine (Zantac) 150 Mg Tab 75 MG PO DAILY for Reduce Stomach Acid, #30 TAB 0 Refills Topiramate (Topiramate) 50 Mg Tab 100 MG PO BID for Control Seizures, #60 TAB 0 Refills Umeclidinium-Vilanterol Inh (Anoro Ellipta Inh) 62.5-25 Mcg/Act Aero 1 PUFF INH DAILY for COPD, #1 INHALER 0 Refills [Mso4 Pump] () 8.028 MG IMPLANPUMP CONTINUOUS Discontinued Medications: Metoprolol Tartrate (Lopressor) 50 Mg Tab 50 MG PO BID, #60 TAB 0 Refills Triamterene-Hydrochlorothiazide (Maxzide-25) 37.5-25 Mg Tab 1 TAB PO DAILY, #30 TAB 0 Refills Additional Information Patient examined. Assessment and plan formulated with Isamar Giang PA-C. I agree with the above. Isamar Giang July 10, 2017 11:35 Benjie Roberts DO July 15, 2017 01:20
[2017-07-10] MEDS ORDERED: Non-Formulary Drug LEFT EYE (11:42)
--- NOTE | 2017-07-10 12:12 | HHI.DCPOC ---
Discharge Care Plan Diagnosis: (1) Bradycardia (2) Orthostatic hypotension Goals to Promote Your Health * To prevent worsening of your condition and complications * To maintain your health at the optimal level Directions to Meet Your Goals Take your medications as prescribed Follow your dietary instruction Follow activity as directed Keep your appointments as scheduled Take your immunizations and boosters as scheduled If your symptoms worsen call your PCP, if no PCP go to Urgent Care Center or Emergency Room Smoking is Dangerous to Your Health. Avoid second hand smoke Call the 24-hour hour crisis hotline for domestic abuse at Isamar Giang July 10, 2017 12:12 Benjie Roberts DO July 15, 2017 01:20
--- NOTE | 2017-07-10 12:13 | HHI.FF ---
Face to Face Verification Diagnosis: (1) Bradycardia (2) Orthostatic hypotension Physical Therapy Order: Evaluate and Treat Home Health Nursing Order: Medical education Signs/symptoms of disease process Medication education-adverse effect Nursing assessment with vital signs I have seen patient Katja Crews on 07/10/17. My clinical findings support the need for the requested home health care services because: Limited ability to care for self High risk of falls I certify that my clinical findings support that this patient is homebound because: Unsteady gait/balance Isamar Giang July 10, 2017 12:13 Benjie Roberts DO July 10, 2017 14:46
[2017-07-10] MEDS ORDERED: CIPR0.3S2 EACH EYE (12:19)
--- NOTE | 2017-07-10 15:33 | ECHRPT ---
Indication: SYNCOPE CONCLUSIONS The left ventricular systolic function is normal with an estimated ejection fraction in the range of 60-65%. Normal left ventricular size. Wall thickness is normal. No regional wall motion abnormalities are present. Normal left ventricular size. Wall thickness is normal. No regional wall motion abnormalities are present. Trace mitral valve regurgitation. Aortic valve sclerosis is present. The pulmonary valve is not well visualized. BP: 148 / 82 HR: 77 Rhythm: Sinus MEASUREMENTS (Male / Female) Normal Values Technical Quality:Fair 2D ECHO LV Diastolic Diameter PLAX 4.2 cm 4.2 - 5.9 / 3.9 - 5.3 cm LV Systolic Diameter PLAX 3.0 cm IVS Diastolic Thickness 1.1 cm 0.6 - 1.0 / 0.6 - 0.9 cm LVPW Diastolic Thickness 1.1 cm 0.6 - 1.0 / 0.6 - 0.9 cm LV Relative Wall Thickness 0.5 RV Internal Dim ED PLAX 2.6 cm LVOT Diameter 1.9 cm LA Systolic Diameter LX 3.0 cm 3.0 - 4.0 / 2.7 - 3.8 cm LV Ejection Fraction MOD 4C 60.8 % LV Cardiac Index MOD 4C 1632.8 cm/minm LV Ejection Fraction 4C AL 64.4 % LV Cardiac Index 4C AL 1745.6 cm/minm M-MODE Aortic Root Diameter MM 2.1 cm LA Systolic Diameter MM 3.1 cm LA Ao Ratio MM 1.5 AV Cusp Separation MM 1.4 cm DOPPLER AV Peak Velocity 221.0 cm/s AV Peak Gradient 19.5 mmHg AV Mean Gradient 8.5 mmHg AV Velocity Time Integral 44.8 cm LVOT Peak Velocity 143.0 cm/s LVOT Peak Gradient 8.2 mmHg LVOT Velocity Time Integral 31.6 cm LVOT Cardiac Index 3250.8 cm/minm AV Area Cont Eq vti 2.0 cm AV Area Cont Eq pk 1.8 cm MV Area PHT 2.5 cm Mitral E Point Velocity 93.8 cm/s Mitral A Point Velocity 129.0 cm/s Mitral E to A Ratio 0.7 LV E' Lateral Velocity 7.8 cm/s Mitral E to LV E' Lateral Ratio 12.0 LV E' Septal Velocity 6.5 cm/s Mitral E to LV E' Septal Ratio 14.4 PV Peak Velocity 109.0 cm/s PV Peak Gradient 4.8 mmHg FINDINGS LEFT VENTRICLE The left ventricular systolic function is normal with an estimated ejection fraction in the range of 60-65%. Normal left ventricular size. Wall thickness is normal. No regional wall motion abnormalities are present. RIGHT VENTRICLE Normal right ventricular size and systolic function. LEFT ATRIUM The left atrial size is normal. RIGHT ATRIUM The right atrial size is normal. ATRIAL SEPTUM Normal atrial septal thickness without atrial level shunting by limited color doppler interrogation. AORTA The aortic root and proximal ascending aorta are normal in size on limited imaging. MITRAL VALVE Structurally normal mitral valve. Trace mitral valve regurgitation. AORTIC VALVE Trileaflet aortic valve. Aortic valve sclerosis is present. TRICUSPID VALVE Structurally normal tricuspid valve. No tricuspid valve stenosis or regurgitation. PULMONARY VALVE The pulmonary valve is not well visualized. VESSELS The inferior vena cava is normal in size. PERICARDIUM No pericardial effusion. Pacheco Lara MD, FACC (Electronically Signed) Final Date:10 Jul 2017 15:33
--- NOTE | 2017-07-12 08:36 | HM ---
Date Performed: 07/09/2017 Time Performed: 12:11:00 HOOKUP DATE: 07/09/17 12:11:00 PM Tue ANALYSIS START TIME: 07/09/2017 12:16:00 PM ANALYSIS END TIME: 07/10/2017 12:20:00 PM PATIENT AGE: 67 PATIENT HEIGHT: 62 PATIENT WEIGHT: 216 DRUG LIST: [id number] PATIENT DIAGNOSIS: low blood pressure TEST NARRATIVE: The patient's average heart rate was 64 BPM. No episodes of tachycardia wer e noted. No episodes of bradycardia were noted. No pauses exceeding 2.0 seconds were noted. No ventricular ectopics were noted. 1 supraventricular ectopics, which represented < 1% of the to neris beat count, were noted. The highest supraventricular ectopic frequency occurred from 03:00 AM to 04:00 AM Wed. During this time 1 SVE(s) occurred. No episodes of ST depression (defined as -1.0 mm or more) were noted in channel 1. No episodes of ST depression (defined as -1.0 mm or more) were noted in channel 2. No episodes of ST depression (defined as -1.0 mm or more) were noted in channel 3. TEST INTERPRETATION: Sinus rhythm No pause No ventricular tachycardia No supraventricular tachycardia observed There is no entry in e diary Signed by : Vicky Rogers
== END 2017-07-10 16:31 | disposition home or self-care (01) ==
LOC: NEPC 18:07 → NEDA 23:23 → NEPFCDU 07-09 00:22
PROVIDERS: ADMIT Hospitalist; ATTEND Hospitalist
DX: R00.1 Bradycardia, unspecified (principal); I95.1 Orthostatic hypotension; I12.9 Hypertensive chronic kidney disease with stage 1 through stage 4 chronic kidney disease, or unspecified chronic kidney disease; N18.3 Chronic kidney disease, stage 3 (moderate); E11.22 Type 2 diabetes mellitus with diabetic chronic kidney disease; C64.1 Malignant neoplasm of right kidney, except renal pelvis; I25.10 Atherosclerotic heart disease of native coronary artery without angina pectoris; E78.5 Hyperlipidemia, unspecified; J44.9 Chronic obstructive pulmonary disease, unspecified; F31.9 Bipolar disorder, unspecified; G89.4 Chronic pain syndrome; M79.7 Fibromyalgia; I25.2 Old myocardial infarction; K21.9 Gastro-esophageal reflux disease without esophagitis; H10.9 Unspecified conjunctivitis; K58.9 Irritable bowel syndrome, unspecified; Z79.899 Other long term (current) drug therapy; Z87.11 Personal history of peptic ulcer disease; Z90.5 Acquired absence of kidney; Z90.710 Acquired absence of both cervix and uterus; Z95.5 Presence of coronary angioplasty implant and graft
CPT/HCPCS: 71045; 80048; 80053; 80307; 81001; 82550; 83735; 84484; 85025; 87070; 87205; 93005; 93225; 93226; 93306; 93880; 96361; 96365; 96366; 96375; 97162; 99285; G0378; G8987; G8988; J7040; J1610